=== PATIENT | female | born 1990 | race Native Hawaiian/Other Pacific Islander ===

== ENCOUNTER 2016-10-03 09:48 | Emergency (ER) | payer OTHER ==
[2016-10-03 10:37] LABS: BASO % 0.2 % (0.0-1.0); EOS # 0.2 K/mm3 (0.0-0.50); EOS % 2.4 % (0.0-3.0); LARGE UNSTAINED CELL # 0.1 K/mm3 (0.0-0.4); LARGE UNSTAINED CELL % 1.8 % (0.0-4.0); LYMPH # 2.3 K/mm3 (1.5-6.5); LYMPH % 30.4 % (24.0-44.0); MEAN CORPUSCULAR HEMOGLOBIN 25.8 pg (27.0-33.0); MEAN CORPUSCULAR HGB CONC 32.1 g/dl (32.0-36.5); MEAN CORPUSCULAR VOLUME 80.2 fl (80.0-96.0); MONO # 0.3 K/mm3 (0.0-0.8); MONO % 3.7 % (0.0-5.0); NEUTROPHILS # 4.6 K/mm3 (1.8-7.7); NEUTROPHILS % 61.4 % (36.0-66.0); PLATELET COUNT, AUTOMATED 262 k/mm3 (150-450); RED CELL DISTRIBUTION WIDTH 14.3 % (11.5-14.5); WHITE BLOOD COUNT 7.4 K/mm3 (4.0-10.0)
[2016-10-03 10:54] LABS: ANION GAP 9 MEQ/L (8-16); BLOOD UREA NITROGEN 10 MG/DL (7-18); CALCIUM LEVEL 8.9 MG/DL (8.5-10.1); CARBON DIOXIDE LEVEL 26 MEQ/L (21-32); CHLORIDE LEVEL 106 MEQ/L (98-107); CREATININE FOR GFR 0.65 MG/DL (0.55-1.02); GLOMERULAR FILTRATION RATE > 60.0 (>60); GLUCOSE, FASTING 100 MG/DL (70-105); HCG, SERUM QUANTITATIVE 204 MIU/ML; SODIUM LEVEL 141 MEQ/L (136-145)
--- NOTE | 2016-10-03 11:30 | REP ---
FIRST TRIMESTER ULTRASOUND: Real-time sonographic evaluation of the pelvis is performed utilizing transabdominal and endovaginal technique. Comparison is made with a priory study of 09/18/2016. The previously noted gestational sac and fetus are no longer visualized on the current exam compatible with spontaneous . The uterus measures 10.4 x 5.9 x 8.6 cm. The endometrial echo complex is diffusely heterogenous and thickened measuring 1.8 cm in diameter. This probably represents a combination of blood clot and/or retained products of conception. Ovaries are normal in size and echotexture, right ovary measuring 3.9 x 2.1 x 2.2 cm and the left ovary 2.9 x 1.9 x 1.7 cm. There is no adnexal mass or free fluid. IMPRESSION: Previously noted gestational sac and fetus is no longer seen compatible with spontaneous . Thickened heterogeneous endometrium likely represents a combination of blood clot and/or retained products of conception. Signed by Abdulkadir Castro MD 10/03/2016 05:20 P
--- NOTE | 2016-10-03 11:43 | EDDOCDS ---
Nurse's Notes [facility] Name: Anyi Devi Age: 26 yrs Sex: Female : 1990 Arrival Date: 10/03/2016 Time: 09:48 Bed I4 / M4 Private MD: SUZI Serrano Diagnosis: Spontaneous ;Urinary tract infection, site not specified Presentation: 10/03 09:52 Presenting complaint: Patient states: 6 weeks . started with heavy vaginal srm bleeding on the . sent here by behavioral health associate to be checked. Risk factors: The patient reports no loss of conciousness prior to arrival. This patient has not had a hysterectomy. This patient has not begun menopause. Adult Sepsis Screening: The patient does not have new or worsening altered mentation. Patient's respiratory rate is less than 22. Systolic blood pressure is greater than 100. Patient has a qSOFA score of 0- Negative Sepsis Screen. Suicide/Homicide risk assessment- the patient denies having any suicidal and/or homicidal ideations and does not present with any other emotional, behavioral or mental health complaints. Status: The patient is a dependent. Transition of care: patient was not received from another setting of care. 09:52 Acuity: JENNIFER Level 3 [facility] 09:52 Method Of Arrival: Walkin/Carried/Asstd [facility] Triage Assessment: 09:53 General: Appears in no apparent distress, Behavior is appropriate for age, cooperative. srm Pain: Denies pain. : Reports vaginal bleeding that is heavy flow. 09:54 Pt Declines HIV testing. 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 Vitamin Oral once daily - PMHx: none; - PSHx: none; - Social history: Smoking status: Patient states former smoker of tobacco. No barriers to communication noted, The patient speaks fluent Luxembourgish, Speaks appropriately for age. - Family history: Not pertinent. - : The pt / caregiver states he / she is not on anticoagulants. Home medication list is obtained from the patient. - Exposure Risk Screening:: None identified. Screenin:07 Screening information is obtained from the patient. Fall risk: No risks identified. kc3 Assistance ADL's: requires no assistance with activities of daily living. Abuse/DV Screen: The patient / caregiver reports he/she is: not in a situation that causes fear, pain or injury. Nutritional screening: No deficits noted. home support is adequate. 11:42 Advance Directives: Currently, there is no health care proxy. kc3 Assessment: 10:27 General: Appears in no apparent distress, comfortable, Behavior is appropriate for age, kc3 cooperative. Pain: Denies pain. Neurological: Level of Consciousness is awake, alert, obeys commands, Oriented to person, place, time. Respiratory: Airway is patent Respiratory effort is even, unlabored, Respiratory pattern is regular, symmetrical. : Reports vaginal bleeding that is moderate flow. Derm: Skin is pink, warm & dry. 11:11 General: Appears in no apparent distress, comfortable, Behavior is appropriate for age, kc3 cooperative. Pain: Denies pain. Neurological: Level of Consciousness is awake, alert, obeys commands, Oriented to person, place, time. Respiratory: Respiratory effort is even, unlabored, Respiratory pattern is regular, symmetrical. Derm: Skin is pink, warm & dry. Musculoskeletal: Circulation, motion, and sensation intact. 11:40 General: Appears in no apparent distress, comfortable, Behavior is appropriate for age, kc3 cooperative. Pain: Denies pain. Neurological: Level of Consciousness is awake, alert, obeys commands, Oriented to person, place, time. Respiratory: Respiratory effort is even, unlabored, Respiratory pattern is regular, symmetrical. : Reports vaginal bleeding that is moderate flow. Derm: Skin is pink, warm & dry. Vital Signs: 09:49 BP 154 / 65; Pulse 80; Resp 18 S; Temp 96.6(O); Pulse Ox 99% on R/A; Weight 116.12 kg dd6 (R); Height 5 ft. 4 in. (162.56 cm) (R); 11:41 BP 132 / 75; Pulse 89; Resp 18; Temp 97.6(O); Pulse Ox 97% on R/A; kc3 09:49 Body Mass Index 43.94 (116.12 kg, 162.56 cm) dd6 Vitals: 09:49 Log In Time: October 03, 2016 at 09:47. dd6 ED Course: 09:49 Patient visited by Cruz Daniels PCA. dd6 09:49 Maggie [facility] [place] Private Physician. dd6 09:49 Patient moved to Waiting dd6 09:50 Patient moved to Pre RCE dd6 09:53 Triage Initiated srm 09:54 Patient moved to Triage 2 srm 09:56 [facility] dt4 09:56 Eryn Newton MD is Attending Physician. dt4 09:56 Patient visited by Sonja Pacheco PA-C. dt4 09:56 Patient moved to I4 / M4 mlb1 10:06 Urinalysis Sent. kc3 10:06 Urine Culture Sent. kc3 10:07 The patient / caregiver is instructed regarding the plan of care and ED course. kc3 10:25 Type & Screen Sent. kc3 10:25 Hcg, Serum Quantitative Sent. kc3 10:26 Basic Metabolic Profile Sent. kc3 10:26 CBC with Diff Sent. kc3 10:27 Inserted saline lock: 20 gauge in left antecubital area and blood collected. The kc3 patient tolerated the procedure well. 10:28 Patient visited by Ashley Noble RN. kc3 10:35 Patient moved to Ultrasound br3 10:36 Wet Prep Sent. kc3 10:36 GC & Chlamydia Amplification Sent. kc3 10:37 Assist provider with pelvic exam: Set up pelvic tray. Specimens sent to lab. Performed kc3 by Sonja Pacheco PA-C Patient tolerated well. 10:38 Patient visited by Ashley Noble RN. kc3 10:59 Patient moved to I4 / M4 br3 11:11 Patient visited by Ashley Noble RN. kc3 11:30 Alicia Dhillon MD is Referral Physician. dt4 11:42 Discontinued IV lock intact, bleeding controlled, pressure dressing applied, No kc3 redness/swelling at site. Administered Medications: 10:25 Drug: NS 0.9% 1000 ml [sodium chloride 0.9 % intravenous solution] Route: IV; Rate: kc3 bolus; Site: left antecubital; 11:42 Follow up: IV Status: Completed infusion kc3 Point of Care Testing: Urine : 10:06 hCG Reading: Positive; Control Reading: Positive; kc3 Ranges: Order Results: Lab Order: Urinalysis; SPEC'M 10/03/16 10:01 Test: APPEARANCE, URINE; Value: CLOUDY; Range: CLEAR; Abnormal: Above high normal; Status: F Test: COLOR, URINE; Value: YELLOW; Range: YELLOW; Status: F Test: PH,URINE; Value: 5.0; Range: 5.0-9.0; Units: UNITS; Status: F Test: SPECIFIC GRAVITY URINE AUTO; Value: 1.020; Range: 1.002-1.035; Status: F Test: PROTEIN, URINE AUTO; Value: 2+; Range: NEGATIVE; Abnormal: Above high normal; Units: mg/dL; Status: F Test: GLUCOSE, URINE (UA) AUTO; Value: NEGATIVE; Range: NEGATIVE; Units: mg/dL; Status: F Test: KETONE, URINE AUTO; Value: NEGATIVE; Range: NEGATIVE; Units: mg/dL; Status: F Test: UROBILINOGEN, URINE AUTO; Value: 0.2; Range: 0.0-2.0; Units: mg/dL; Status: F Test: BILIRUBIN, URINE AUTO; Value: NEGATIVE; Range: NEGATIVE; Status: F Test: NITRITE, URINE AUTO; Value: NEGATIVE; Range: NEGATIVE; Status: F Test: LEUKOCYTE ESTERASE, URINE AUTO; Value: 1+; Range: NEGATIVE; Abnormal: Above high normal; Status: F Test: BLOOD, URINE BLOOD; Value: 3+; Range: NEGATIVE; Abnormal: Above high normal; Status: F Test: WBC, URINE AUTO; Value: 13; Range: 0-3; Abnormal: Above high normal; Units: /HPF; Status: F Test: RBC, URINE AUTO; Value: 42; Range: 0-3; Abnormal: Above high normal; Units: /HPF; Status: F Test: BACTERIA, URINE AUTO; Value: 1+; Range: NEGATIVE; Abnormal: Above high normal; Status: F Test: SQUAMOUS EPITHELIAL CELL UR AU; Value: 6; Range: 0-6; Units: /HPF; Status: F Test: MUCUS, URINE; Value: SMALL; Range: NEGATIVE; Status: F Test: HYALINE CAST, URINE AUTO; Value: 0; Range: 0-1; Units: /LPF; Status: F Lab Order: CBC with Diff; SPEC'M 10/03/16 10:15 Test: WHITE BLOOD COUNT; Value: 7.4; Range: 4.0-10.0; Units: K/mm3; Status: F Test: RED BLOOD COUNT; Value: 4.62; Range: 4.00-5.40; Units: M/mm3; Status: F Test: HEMOGLOBIN; Value: 11.9; Range: 12.0-16.0; Abnormal: Below low normal; Units: g/dl; Status: F Test: HEMATOCRIT; Value: 37.1; Range: 36.0-47.0; Units: %; Status: F Test: MEAN CORPUSCULAR VOLUME; Value: 80.2; Range: 80.0-96.0; Units: fl; Status: F Test: MEAN CORPUSCULAR HEMOGLOBIN; Value: 25.8; Range: 27.0-33.0; Abnormal: Below low normal; Units: pg; Status: F Test: MEAN CORPUSCULAR HGB CONC; Value: 32.1; Range: 32.0-36.5; Units: g/dl; Status: F Test: RED CELL DISTRIBUTION WIDTH; Value: 14.3; Range: 11.5-14.5; Units: %; Status: F Test: PLATELET COUNT, AUTOMATED; Value: 262; Range: 150-450; Units: k/mm3; Status: F Test: NEUTROPHILS %; Value: 61.4; Range: 36.0-66.0; Units: %; Status: F Test: LYMPH %; Value: 30.4; Range: 24.0-44.0; Units: %; Status: F Test: MONO %; Value: 3.7; Range: 0.0-5.0; Units: %; Status: F Test: EOS %; Value: 2.4; Range: 0.0-3.0; Units: %; Status: F Test: BASO %; Value: 0.2; Range: 0.0-1.0; Units: %; Status: F Test: LARGE UNSTAINED CELL %; Value: 1.8; Range: 0.0-4.0; Units: %; Status: F Test: NEUTROPHILS #; Value: 4.6; Range: 1.8-7.7; Units: K/mm3; Status: F Test: LYMPH #; Value: 2.3; Range: 1.5-6.5; Units: K/mm3; Status: F Test: MONO #; Value: 0.3; Range: 0.0-0.8; Units: K/mm3; Status: F Test: EOS #; Value: 0.2; Range: 0.0-0.50; Units: K/mm3; Status: F Test: BASO #; Value: 0.0; Range: 0.0-0.2; Units: K/mm3; Status: F Test: LARGE UNSTAINED CELL #; Value: 0.1; Range: 0.0-0.4; Units: K/mm3; Status: F Lab Order: Basic Metabolic Profile; SPEC'M 10/03/16 10:15 Test: GLUCOSE, FASTING; Value: 100; Range: 70-105; Units: MG/DL; Status: F Test: BLOOD UREA NITROGEN; Value: 10; Range: 7-18; Units: MG/DL; Status: F Test: CREATININE FOR GFR; Value: 0.65; Range: 0.55-1.02; Units: MG/DL; Status: F Test: GLOMERULAR FILTRATION RATE; Value: > 60.0; Range: >60; Status: F Test: SODIUM LEVEL; Value: 141; Range: 136-145; Units: MEQ/L; Status: F Test: POTASSIUM SERUM; Value: 4.0; Range: 3.5-5.1; Units: MEQ/L; Status: F Test: CHLORIDE LEVEL; Value: 106; Range: 98-107; Units: MEQ/L; Status: F Test: CARBON DIOXIDE LEVEL; Value: 26; Range: 21-32; Units: MEQ/L; Status: F Test: ANION GAP; Value: 9; Range: 8-16; Units: MEQ/L; Status: F Test: CALCIUM LEVEL; Value: 8.9; Range: 8.5-10.1; Units: MG/DL; Status: F Test Note: ; Units are mL/min/1.73 m2 Chronic Kidney Disease Staging per NKF: Stage I & II GFR >=60 Normal to Mildly Decreased Stage III GFR 30-59 Moderately Decreased Stage IV GFR 15-29 Severely Decreased Stage V GFR <15 Very Little GFR Left ESRD GFR <15 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 This assay has been designed to minimize interference from heterophilic antibodies. Elevated hCG levels have also been associated with trophoblastic disease and nontrophoblastic neoplasms. The possibility of having these diseases should be considered before a diagnosis of is made. This test is not intended for use as a surrogate marker for aiding in the diagnosis or monitoring the treatment of cancer patients. Siemens LIFT12 methodology. Lab Order: Type & Screen; SPEC'M 10/03/16 10:15 Test: BLOOD TYPE; Value: O POS; Status: F Test: AB SCREEN (INDIRECT TAISHA)GEL; Value: NEGATIVE; Status: F Lab Order: Wet Prep; SPEC'M 10/03/16 10:15 Test: WET PREP; Value: WET PREP RESULT; Status: F Test: WET PREP; Value: MANY EPITHELIAL CELLS PRESENT; Status: F Test: WET PREP; Value: MANY RBC; Status: F Test: WET PREP; Value: MODERATE WBC; Status: F Test: WET PREP; Value: MODERATE LONG RODS PRESENT; Status: F Test: WET PREP; Value: MODERATE SHORT RODS PRESENT; Status: F Outcome: 11:31 Discharge ordered by Provider. dt4 11:41 Discharge Assessment: Patient awake, alert and oriented x 3. No cognitive and/or kc3 functional deficits noted. Patient verbalized understanding of disposition instructions. patient administered narcotics - no. The following High Risk Discharge criteria are identified: None. Condition: stable. Discharge instructions given to patient, Instructed on discharge instructions, follow up and referral plans. medication usage, Demonstrated understanding of instructions, medications, Pt was receptive of discharge instructions/ teaching. Prescriptions given X 1. Ultrasound Study completed. Property :Personal belongings accompany Pt. 11:43 Patient left the ED. kc3 Signatures: Maryse Parisi, RN RN Nehemias Alexander RN RN mlb1 Cruz Daniels, VOCATIONAL NURSE VOCATIONAL NURSE dd6 Katerin Loco br3 Sonja Pacheco PA-C PAFlor dt4 Ashley Noble RN RN kc3 Corrections: (The following items were deleted from the chart) 10:37 10:27 : Reports vaginal bleeding that is kc3 kc3 11:40 10:27 : Reports vaginal bleeding that is kc3 kc3 MTDD
--- NOTE | 2016-10-03 11:43 | EDDOCDS ---
Physician Documentation [facility] Name: Anyi Devi Age: 26 yrs Sex: Female : 1990 Arrival Date: 10/03/2016 Time: 09:48 Bed I4 / M4 Private MD: Maggie [facility] [place] [place] Disposition: 10/03/16 11:31 Discharged to Home/Self Care. Impression: Spontaneous , Urinary tract infection, site not specified. - Condition is Stable. - Discharge Instructions: Miscarriage, Urinary Tract Infection. - Prescriptions for Macrobid 100 mg Oral Capsule - take 100 milligrams by ORAL route every 12 hours for 7 days; 14 capsule. - Medication Reconciliation, Local Pharmacy Hours form. - Follow up: Emergency Department; When: As needed; Reason: Worsening of conditions. Follow up: Alicia Dhillon MD; When: 2 - 3 days; Reason: Wound/Symptom Recheck, Recheck today's complaints, Continuance of care. - Problem is new. - Symptoms are unchanged. Historical: - Allergies: no known allergies; - Home Meds: 1. Vitamin Oral once daily - PMHx: none; - PSHx: none; - Social history: Smoking status: Patient states former smoker of tobacco. No barriers to communication noted, The patient speaks fluent Tuvaluan, Speaks appropriately for age. - Family history: Not pertinent. - : The pt / caregiver states he / she is not on anticoagulants. Home medication list is obtained from the patient. - Exposure Risk Screening:: None identified. 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 4 in. (162.56 cm) (R); 11:41 BP 132 / 75; Pulse 89; Resp 18; Temp 97.6(O); Pulse Ox 97% on R/A; kc3 09:49 Body Mass Index 43.94 (116.12 kg, 162.56 cm) dd6 MDM: 09:57 UCG by Nursing ordered. dt4 09:58 Urinalysis Ordered. EDMS 09:58 Urine Culture Ordered. EDMS 10:07 IV Saline Lock ordered. dt4 10:07 NS 0.9% 1000 ml IV at bolus once ordered. dt4 10:07 Set up pelvic ordered. dt4 10:07 Undress patient appropriately for examination ordered. dt4 10:08 CBC with Diff Ordered. EDMS 10:08 Basic Metabolic Profile Ordered. EDMS 10:08 Hcg, Serum Quantitative Ordered. EDMS 10:08 Type & Screen Ordered. EDMS 10:08 GC & Chlamydia Amplification Ordered. EDMS 10:08 Wet Prep Ordered. EDMS 10:08 US 1st trimester Ordered. EDMS 10:32 Financial registration complete. lg 10:56 TRANSVAGINAL US Ordered. EDMS Point of Care Testing: Urine : 10:06 hCG Reading: Positive; Control Reading: Positive; kc3 Ranges: Administered Medications: 10:25 Drug: NS 0.9% 1000 ml [sodium chloride 0.9 % intravenous solution] Route: IV; Rate: kc3 bolus; Site: left antecubital; 11:42 Follow up: IV Status: Completed infusion kc3 Signatures: Dispatcher [employer] EDMaryse Ledezma, RN RN srm Riley Clifford, Reg Reg lg Sonja Pacheco PA-C PAFlor dt4 Ashley Noble,MESERET CARL kc3 MTDD
--- NOTE | 2016-10-05 12:44 | EDDOCDS ---
Nurse's Notes [facility] Name: Anyi Devi Age: 26 yrs Sex: Female : 1990 Arrival Date: 10/03/2016 Time: 09:48 Bed I4 / M4 Private MD: SUZI Serrano Diagnosis: Spontaneous ;Urinary tract infection, site not specified Presentation: 10/03 09:52 Presenting complaint: Patient states: 6 weeks . started with heavy vaginal srm bleeding on the . sent here by estate tax examiner to be checked. Risk factors: The patient reports no loss of conciousness prior to arrival. This patient has not had a hysterectomy. This patient has not begun menopause. Adult Sepsis Screening: The patient does not have new or worsening altered mentation. Patient's respiratory rate is less than 22. Systolic blood pressure is greater than 100. Patient has a qSOFA score of 0- Negative Sepsis Screen. Suicide/Homicide risk assessment- the patient denies having any suicidal and/or homicidal ideations and does not present with any other emotional, behavioral or mental health complaints. Status: The patient is a dependent. Transition of care: patient was not received from another setting of care. 09:52 Acuity: JENNIFER Level 3 [facility] 09:52 Method Of Arrival: Walkin/Carried/Asstd [facility] Triage Assessment: 09:53 General: Appears in no apparent distress, Behavior is appropriate for age, cooperative. srm Pain: Denies pain. : Reports vaginal bleeding that is heavy flow. 09:54 Pt Declines HIV testing. 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 Vitamin Oral once daily - PMHx: none; - PSHx: none; - Social history: Smoking status: Patient states former smoker of tobacco. No barriers to communication noted, The patient speaks fluent Occitan, Speaks appropriately for age. - Family history: Not pertinent. - : The pt / caregiver states he / she is not on anticoagulants. Home medication list is obtained from the patient. - Exposure Risk Screening:: None identified. Screenin:07 Screening information is obtained from the patient. Fall risk: No risks identified. kc3 Assistance ADL's: requires no assistance with activities of daily living. Abuse/DV Screen: The patient / caregiver reports he/she is: not in a situation that causes fear, pain or injury. Nutritional screening: No deficits noted. home support is adequate. 11:42 Advance Directives: Currently, there is no health care proxy. kc3 Assessment: 10:27 General: Appears in no apparent distress, comfortable, Behavior is appropriate for age, kc3 cooperative. Pain: Denies pain. Neurological: Level of Consciousness is awake, alert, obeys commands, Oriented to person, place, time. Respiratory: Airway is patent Respiratory effort is even, unlabored, Respiratory pattern is regular, symmetrical. : Reports vaginal bleeding that is moderate flow. Derm: Skin is pink, warm & dry. 11:11 General: Appears in no apparent distress, comfortable, Behavior is appropriate for age, kc3 cooperative. Pain: Denies pain. Neurological: Level of Consciousness is awake, alert, obeys commands, Oriented to person, place, time. Respiratory: Respiratory effort is even, unlabored, Respiratory pattern is regular, symmetrical. Derm: Skin is pink, warm & dry. Musculoskeletal: Circulation, motion, and sensation intact. 11:40 General: Appears in no apparent distress, comfortable, Behavior is appropriate for age, kc3 cooperative. Pain: Denies pain. Neurological: Level of Consciousness is awake, alert, obeys commands, Oriented to person, place, time. Respiratory: Respiratory effort is even, unlabored, Respiratory pattern is regular, symmetrical. : Reports vaginal bleeding that is moderate flow. Derm: Skin is pink, warm & dry. Vital Signs: 09:49 BP 154 / 65; Pulse 80; Resp 18 S; Temp 96.6(O); Pulse Ox 99% on R/A; Weight 116.12 kg dd6 (R); Height 5 ft. 4 in. (162.56 cm) (R); 11:41 BP 132 / 75; Pulse 89; Resp 18; Temp 97.6(O); Pulse Ox 97% on R/A; kc3 09:49 Body Mass Index 43.94 (116.12 kg, 162.56 cm) dd6 Vitals: 09:49 Log In Time: October 03, 2016 at 09:47. dd6 ED Course: 09:49 Patient visited by Cruz Daniels PCA. dd6 09:49 Maggie [facility] is Private Physician. dd6 09:49 Patient moved to Waiting dd6 09:50 Patient moved to Pre RCE dd6 09:53 Triage Initiated srm 09:54 Patient moved to Triage 2 srm 09:56 Sonja Pacheco [facility]-C [facility]. dt4 09:56 Eryn Newton MD is Attending Physician. dt4 09:56 Patient visited by Sonja Pacheco PA-C. dt4 09:56 Patient moved to I4 / M4 mlb1 10:06 Urinalysis Sent. kc3 10:06 Urine Culture Sent. kc3 10:07 The patient / caregiver is instructed regarding the plan of care and ED course. kc3 10:25 Type & Screen Sent. kc3 10:25 Hcg, Serum Quantitative Sent. kc3 10:26 Basic Metabolic Profile Sent. kc3 10:26 CBC with Diff Sent. kc3 10:27 Inserted saline lock: 20 gauge in left antecubital area and blood collected. The kc3 patient tolerated the procedure well. 10:28 Patient visited by Ashley Noble RN. kc3 10:35 Patient moved to Ultrasound br3 10:36 Wet Prep Sent. kc3 10:36 GC & Chlamydia Amplification Sent. kc3 10:37 Assist provider with pelvic exam: Set up pelvic tray. Specimens sent to lab. Performed kc3 by Sonja Pacheco PA-C Patient tolerated well. 10:38 Patient visited by Ashley Noble RN. kc3 10:59 Patient moved to I4 / M4 br3 11:11 Patient visited by Ashley Noble RN. kc3 11:30 Alicia Dhillon MD is Referral Physician. dt4 11:42 Discontinued IV lock intact, bleeding controlled, pressure dressing applied, No kc3 redness/swelling at site. 11:51 [facility] Payment Agreement was scanned into [employer] and attached to record. lg 11:53 US 1st trimester Returned. EDMS 14:56 T-Sheet-- Draft Copy was scanned into [employer] and attached to record. gb 14:56 Radiology Report was scanned into [employer] and attached to record. gb Administered Medications: 10:25 Drug: NS 0.9% 1000 ml [sodium chloride 0.9 % intravenous solution] Route: IV; Rate: kc3 bolus; Site: left antecubital; 11:42 Follow up: IV Status: Completed infusion kc3 Point of Care Testing: Urine : 10:06 hCG Reading: Positive; Control Reading: Positive; kc3 Ranges: Order Results: Lab Order: Urinalysis; SPEC'M 10/03/16 10:01 Test: APPEARANCE, URINE; Value: CLOUDY; Range: CLEAR; Abnormal: Above high normal; Status: F Test: COLOR, URINE; Value: YELLOW; Range: YELLOW; Status: F Test: PH,URINE; Value: 5.0; Range: 5.0-9.0; Units: UNITS; Status: F Test: SPECIFIC GRAVITY URINE AUTO; Value: 1.020; Range: 1.002-1.035; Status: F Test: PROTEIN, URINE AUTO; Value: 2+; Range: NEGATIVE; Abnormal: Above high normal; Units: mg/dL; Status: F Test: GLUCOSE, URINE (UA) AUTO; Value: NEGATIVE; Range: NEGATIVE; Units: mg/dL; Status: F Test: KETONE, URINE AUTO; Value: NEGATIVE; Range: NEGATIVE; Units: mg/dL; Status: F Test: UROBILINOGEN, URINE AUTO; Value: 0.2; Range: 0.0-2.0; Units: mg/dL; Status: F Test: BILIRUBIN, URINE AUTO; Value: NEGATIVE; Range: NEGATIVE; Status: F Test: NITRITE, URINE AUTO; Value: NEGATIVE; Range: NEGATIVE; Status: F Test: LEUKOCYTE ESTERASE, URINE AUTO; Value: 1+; Range: NEGATIVE; Abnormal: Above high normal; Status: F Test: BLOOD, URINE BLOOD; Value: 3+; Range: NEGATIVE; Abnormal: Above high normal; Status: F Test: WBC, URINE AUTO; Value: 13; Range: 0-3; Abnormal: Above high normal; Units: /HPF; Status: F Test: RBC, URINE AUTO; Value: 42; Range: 0-3; Abnormal: Above high normal; Units: /HPF; Status: F Test: BACTERIA, URINE AUTO; Value: 1+; Range: NEGATIVE; Abnormal: Above high normal; Status: F Test: SQUAMOUS EPITHELIAL CELL UR AU; Value: 6; Range: 0-6; Units: /HPF; Status: F Test: MUCUS, URINE; Value: SMALL; Range: NEGATIVE; Status: F Test: HYALINE CAST, URINE AUTO; Value: 0; Range: 0-1; Units: /LPF; Status: F Lab Order: Urine Culture; SPEC'M 10/03/16 10:01 Test: URINE CULTURE; Value: ORGANISM 1: LACTOBACILLUS SPECIES; Status: F Test: URINE CULTURE; Value: LACTOBACILLUS SPECIES; Status: F Test: URINE CULTURE; Value: COLONY COUNT CFU/ml >100,000; Status: F Test: URINE CULTURE; Value: Lactobacillus sp line 1 Most Lactobacillus species recovered from clinical; Status: F Test: URINE CULTURE; Value: Lactobacillus sp line 2 specimens are rarely pathogenic. Penicillin or; Status: F Test: URINE CULTURE; Value: Lactobacillus sp line 3 ampicillin with or without gentamicin is recommended; Status: F Test: URINE CULTURE; Value: Lactobacillus sp line 4 for treatment. Clindamycin and erythromycin are; Status: F Test: URINE CULTURE; Value: Lactobacillus sp line 5 alternative treatments. Vancomycin resistance has been; Status: F Test: URINE CULTURE; Value: Lactobacillus sp line 6 reported.; Status: F Lab Order: CBC with Diff; SPEC'M 10/03/16 10:15 Test: WHITE BLOOD COUNT; Value: 7.4; Range: 4.0-10.0; Units: K/mm3; Status: F Test: RED BLOOD COUNT; Value: 4.62; Range: 4.00-5.40; Units: M/mm3; Status: F Test: HEMOGLOBIN; Value: 11.9; Range: 12.0-16.0; Abnormal: Below low normal; Units: g/dl; Status: F Test: HEMATOCRIT; Value: 37.1; Range: 36.0-47.0; Units: %; Status: F Test: MEAN CORPUSCULAR VOLUME; Value: 80.2; Range: 80.0-96.0; Units: fl; Status: F Test: MEAN CORPUSCULAR HEMOGLOBIN; Value: 25.8; Range: 27.0-33.0; Abnormal: Below low normal; Units: pg; Status: F Test: MEAN CORPUSCULAR HGB CONC; Value: 32.1; Range: 32.0-36.5; Units: g/dl; Status: F Test: RED CELL DISTRIBUTION WIDTH; Value: 14.3; Range: 11.5-14.5; Units: %; Status: F Test: PLATELET COUNT, AUTOMATED; Value: 262; Range: 150-450; Units: k/mm3; Status: F Test: NEUTROPHILS %; Value: 61.4; Range: 36.0-66.0; Units: %; Status: F Test: LYMPH %; Value: 30.4; Range: 24.0-44.0; Units: %; Status: F Test: MONO %; Value: 3.7; Range: 0.0-5.0; Units: %; Status: F Test: EOS %; Value: 2.4; Range: 0.0-3.0; Units: %; Status: F Test: BASO %; Value: 0.2; Range: 0.0-1.0; Units: %; Status: F Test: LARGE UNSTAINED CELL %; Value: 1.8; Range: 0.0-4.0; Units: %; Status: F Test: NEUTROPHILS #; Value: 4.6; Range: 1.8-7.7; Units: K/mm3; Status: F Test: LYMPH #; Value: 2.3; Range: 1.5-6.5; Units: K/mm3; Status: F Test: MONO #; Value: 0.3; Range: 0.0-0.8; Units: K/mm3; Status: F Test: EOS #; Value: 0.2; Range: 0.0-0.50; Units: K/mm3; Status: F Test: BASO #; Value: 0.0; Range: 0.0-0.2; Units: K/mm3; Status: F Test: LARGE UNSTAINED CELL #; Value: 0.1; Range: 0.0-0.4; Units: K/mm3; Status: F Lab Order: Basic Metabolic Profile; [facility]' 10/03/16 10:15 Test: GLUCOSE, FASTING; Value: 100; Range: 70-105; Units: MG/DL; Status: F Test: BLOOD UREA NITROGEN; Value: 10; Range: 7-18; Units: MG/DL; Status: F Test: CREATININE FOR GFR; Value: 0.65; Range: 0.55-1.02; Units: MG/DL; Status: F Test: GLOMERULAR FILTRATION RATE; Value: > 60.0; Range: >60; Status: F Test: SODIUM LEVEL; Value: 141; Range: 136-145; Units: MEQ/L; Status: F Test: POTASSIUM SERUM; Value: 4.0; Range: 3.5-5.1; Units: MEQ/L; Status: F Test: CHLORIDE LEVEL; Value: 106; Range: 98-107; Units: MEQ/L; Status: F Test: CARBON DIOXIDE LEVEL; Value: 26; Range: 21-32; Units: MEQ/L; Status: F Test: ANION GAP; Value: 9; Range: 8-16; Units: MEQ/L; Status: F Test: CALCIUM LEVEL; Value: 8.9; Range: 8.5-10.1; Units: MG/DL; Status: F Test Note: ; Units are mL/min/1.73 m2 Chronic Kidney Disease Staging per NKF: Stage I & II GFR >=60 Normal to Mildly Decreased Stage III GFR 30-59 Moderately Decreased Stage IV GFR 15-29 Severely Decreased Stage V GFR <15 Very Little GFR Left ESRD GFR <15 on DIRECTOR OF STUDENT AID Lab Order: Hcg, Serum Quantitative; SPEC'M 10/03/16 10:15 Test: HCG, SERUM QUANTITATIVE; Value: 204; Units: MIU/ML; Status: F Test Note: ; GESTATIONAL AGE APPROXIMATE HCG RANGE (MIU/ML) 0.2-1 WEEK 5-50 1-2 WEEKS 50-500 2-3 WEEKS 100-5,000 3-4 WEEKS 500-10,000 4-5 WEEKS 1,000-50,000 5-6 WEEKS 10,000-100,000 6-8 WEEKS 15,000-200,000 2-3 MONTHS 10,000-100,000 NON FEMALES LESS THAN 3.0 Patient samples may contain human heterophilic antibodies that could react with immunoassays to give falsely elevated or depressed results. This assay has been designed to minimize interference from heterophilic antibodies. Elevated hCG levels have also been associated with trophoblastic disease and nontrophoblastic neoplasms. The possibility of having these diseases should be considered before a diagnosis of is made. This test is not intended for use as a surrogate marker for aiding in the diagnosis or monitoring the treatment of cancer patients. [facility] methodology. Lab Order: Type & Screen; SPEC'M 10/03/16 10:15 Test: BLOOD TYPE; Value: O POS; Status: F Test: AB SCREEN (INDIRECT TAISHA)GEL; Value: NEGATIVE; Status: F Lab Order: GC & Chlamydia Amplification; SPEC'M 10/03/16 10:15 Test: CHLAMYDIA DNA AMPLIFICATION; Value: NEGATIVE; Range: NEGATIVE; Status: F Test: GC DNA AMPLIFICATION; Value: NEGATIVE; Range: NEGATIVE; Status: F Lab Order: Wet Prep; SPEC'M 10/03/16 10:15 Test: WET PREP; Value: WET PREP RESULT; Status: F Test: WET PREP; Value: MANY EPITHELIAL CELLS PRESENT; Status: F Test: WET PREP; Value: MANY RBC; Status: F Test: WET PREP; Value: MODERATE WBC; Status: F Test: WET PREP; Value: MODERATE LONG RODS PRESENT; Status: F Test: WET PREP; Value: MODERATE SHORT RODS PRESENT; Status: F Radiology Order: US 1st trimester Test: US 1st trimester REASON FOR EXAMINATION: pos preg, vag bleed; FIRST TRIMESTER ULTRASOUND:; ; Real-time sonographic evaluation of the pelvis is performed utilizing; transabdominal and endovaginal technique.; ; Comparison is made with a priory study of 09/18/2016.; ; The previously noted gestational sac and fetus are no longer visualized on the; current exam compatible with spontaneous . The uterus measures 10.4 x 5.9; x 8.6 cm. The endometrial echo complex is diffusely heterogenous and thickened; measuring 1.8 cm in diameter. This probably represents a combination of blood; clot and/or retained products of conception.; ; Ovaries are normal in size and echotexture, right ovary measuring 3.9 x 2.1 x 2.2; cm and the left ovary 2.9 x 1.9 x 1.7 cm. There is no adnexal mass or free fluid.; ; ; IMPRESSION:; ; Previously noted gestational sac and fetus is no longer seen compatible with; spontaneous . Thickened heterogeneous endometrium likely represents a; combination of blood clot and/or retained products of conception.; ; ; Signed by; Abdulkadir Castro MD 10/03/2016 05:20 P; Outcome: 11:31 Discharge ordered by Provider. dt4 11:41 Discharge Assessment: Patient awake, alert and oriented x 3. No cognitive and/or kc3 functional deficits noted. Patient verbalized understanding of disposition instructions. patient administered narcotics - no. The following High Risk Discharge criteria are identified: None. Condition: stable. Discharge instructions given to patient, Instructed on discharge instructions, follow up and referral plans. medication usage, Demonstrated understanding of instructions, medications, Pt was receptive of discharge instructions/ teaching. Prescriptions given X 1. Ultrasound Study completed. Property :Personal belongings accompany Pt. 11:43 Patient left the ED. kc3 Signatures: Dispatcher [employer] EDMS Maryse Parisi, RN RN [facility] Maranda Thomason, Reg Reg gb Riley Clifford, Reg Reg lg Nehemias Rueda RN RN mlb1 Cruz Daniels, INFORMATION SECURITY ASSOCIATE INFORMATION SECURITY ASSOCIATE dd6 Katerin Loco br3 Sonja Pacheco, PA-C PA-C dt4 Ashley Noble,RN RN kc3 Corrections: (The following items were deleted from the chart) 10:37 10:27 : Reports vaginal bleeding that is kc3 kc3 11:40 10:27 : Reports vaginal bleeding that is kc3 kc3 Chart Complete [facility]
--- NOTE | 2016-10-05 12:44 | EDDOCDS ---
Physician Documentation [facility] Name: Anyi Devi Age: 26 yrs Sex: Female : 1990 Arrival Date: 10/03/2016 Time: 09:48 Bed I4 / M4 Private MD: [place] [facility] [place]: 10/03/16 11:31 Discharged to Home/Self Care. Impression: Spontaneous , Urinary tract infection, site not specified. - Condition is Stable. - Discharge Instructions: Miscarriage, Urinary Tract Infection. - Prescriptions for Macrobid 100 mg Oral Capsule - take 100 milligrams by ORAL route every 12 hours for 7 days; 14 capsule. - Medication Reconciliation, Local Pharmacy Hours form. - Follow up: Emergency Department; When: As needed; Reason: Worsening of conditions. Follow up: Alicia Dhillon MD; When: 2 - 3 days; Reason: Wound/Symptom Recheck, Recheck today's complaints, Continuance of care. - Problem is new. - Symptoms are unchanged. Historical: - Allergies: no known allergies; - Home Meds: 1. Vitamin Oral once daily - PMHx: none; - PSHx: none; - Social history: Smoking status: Patient states former smoker of tobacco. No barriers to communication noted, The patient speaks fluent German, Speaks appropriately for age. - Family history: Not pertinent. - : The pt / caregiver states he / she is not on anticoagulants. Home medication list is obtained from the patient. - Exposure Risk Screening:: None identified. 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 4 in. (162.56 cm) (R); 11:41 BP 132 / 75; Pulse 89; Resp 18; Temp 97.6(O); Pulse Ox 97% on R/A; kc3 09:49 Body Mass Index 43.94 (116.12 kg, 162.56 cm) dd6 MDM: 09:57 UCG by Nursing ordered. dt4 09:58 Urinalysis Ordered. EDMS 09:58 Urine Culture Ordered. EDMS 10:07 IV Saline Lock ordered. dt4 10:07 NS 0.9% 1000 ml IV at bolus once ordered. dt4 10:07 Set up pelvic ordered. dt4 10:07 Undress patient appropriately for examination ordered. dt4 10:08 CBC with Diff Ordered. EDMS 10:08 Basic Metabolic Profile Ordered. EDMS 10:08 Hcg, Serum Quantitative Ordered. EDMS 10:08 Type & Screen Ordered. EDMS 10:08 GC & Chlamydia Amplification Ordered. EDMS 10:08 Wet Prep Ordered. EDMS 10:08 US 1st trimester Ordered. EDMS 10:32 Financial registration complete. lg 10:56 TRANSVAGINAL US Ordered. EDMS 11:51 [facility] Payment Agreement was scanned into [employer] and attached to record. lg 14:56 T-Sheet-- Draft Copy was scanned into [employer] and attached to record. gb 14:56 Radiology Report was scanned into [employer] and attached to record. Point of Care Testing: Urine : 10:06 hCG Reading: Positive; Control Reading: Positive; kc3 Ranges: Administered Medications: 10:25 Drug: NS 0.9% 1000 ml [sodium chloride 0.9 % intravenous solution] Route: IV; Rate: kc3 bolus; Site: left antecubital; 11:42 Follow up: IV Status: Completed infusion kc3 Signatures: Dispatcher [employer] Maryse Manriquez, MESERET CARL [facility] Maranda Thomason, Reg Reg gb Riley Clifford, Reg Reg lg Sonja Pacheco, DARCI BEJARANO dt4 Ashley NobleRN RN kc3 The chart was reviewed and I authenticate all verbal orders and agree with the evaluation and treatment provided.Attachments: 11:51 [facility] Payment Agreement lg 14:56 T-Sheet-- Draft Copy gb Chart Complete MTDD
--- NOTE | 2016-10-05 12:44 | EDDOCDS ---
Physician Documentation [facility] Name: Anyi Devi Age: 26 yrs Sex: Female : 1990 Arrival Date: 10/03/2016 Time: 09:48 Bed I4 / M4 Private MD: Maggie [facility] Disposition: 10/03/16 11:31 Discharged to Home/Self Care. Impression: Spontaneous , Urinary tract infection, site not specified. - Condition is Stable. - Discharge Instructions: Miscarriage, Urinary Tract Infection. - Prescriptions for Macrobid 100 mg Oral Capsule - take 100 milligrams by ORAL route every 12 hours for 7 days; 14 capsule. - Medication Reconciliation, Local Pharmacy Hours form. - Follow up: Emergency Department; When: As needed; Reason: Worsening of conditions. Follow up: Alicia Dhillon MD; When: 2 - 3 days; Reason: Wound/Symptom Recheck, Recheck today's complaints, Continuance of care. - Problem is new. - Symptoms are unchanged. Historical: - Allergies: no known allergies; - Home Meds: 1. Vitamin Oral once daily - PMHx: none; - PSHx: none; - Social history: Smoking status: Patient states former smoker of tobacco. No barriers to communication noted, The patient speaks fluent Chadian, Speaks appropriately for age. - Family history: Not pertinent. - : The pt / caregiver states he / she is not on anticoagulants. Home medication list is obtained from the patient. - Exposure Risk Screening:: None identified. 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 4 in. (162.56 cm) (R); 11:41 BP 132 / 75; Pulse 89; Resp 18; Temp 97.6(O); Pulse Ox 97% on R/A; kc3 09:49 Body Mass Index 43.94 (116.12 kg, 162.56 cm) dd6 MDM: 09:57 UCG by Nursing ordered. dt4 09:58 Urinalysis Ordered. EDMS 09:58 Urine Culture Ordered. EDMS 10:07 IV Saline Lock ordered. dt4 10:07 NS 0.9% 1000 ml IV at bolus once ordered. dt4 10:07 Set up pelvic ordered. dt4 10:07 Undress patient appropriately for examination ordered. dt4 10:08 CBC with Diff Ordered. EDMS 10:08 Basic Metabolic Profile Ordered. EDMS 10:08 Hcg, Serum Quantitative Ordered. EDMS 10:08 Type & Screen Ordered. EDMS 10:08 GC & Chlamydia Amplification Ordered. EDMS 10:08 Wet Prep Ordered. EDMS 10:08 US 1st trimester Ordered. EDMS 10:32 Financial registration complete. lg 10:56 TRANSVAGINAL US Ordered. EDMS 11:51 [facility] [place] Payment Agreement was scanned into [employer] and attached to record. lg 14:56 T-Sheet-- Draft Copy was scanned into [employer] and attached to record. gb 14:56 Radiology Report was scanned into [employer] and attached to record. Point of Care Testing: Urine : 10:06 hCG Reading: Positive; Control Reading: Positive; kc3 Ranges: Administered Medications: 10:25 Drug: NS 0.9% 1000 ml [sodium chloride 0.9 % intravenous solution] Route: IV; Rate: kc3 bolus; Site: left antecubital; 11:42 Follow up: IV Status: Completed infusion kc3 Signatures: Dispatcher [employer] Maryse Manriquez, MESERET CARL [facility] Maranda Thomason, Reg Reg gb Riley Clifford, Reg Reg lg Sonja Pacheco, DARCI BEJARANO dt4 Ashley NobleRN RN kc3 The chart was reviewed and I authenticate all verbal orders and agree with the evaluation and treatment provided.Attachments: 11:51 [facility] Payment Agreement lg 14:56 T-Sheet-- Draft Copy gb Chart Complete MTDD
--- NOTE | 2016-10-06 17:12 | EDDOCDS ---
Physician Documentation [facility] Name: Anyi Devi Age: 26 yrs Sex: Female : 1990 Arrival Date: 10/03/2016 Time: 09:48 Bed I4 / M4 Private MD: Maggie [facility] [place] Disposition: 10/03/16 11:31 Discharged to Home/Self Care. Impression: Spontaneous , Urinary tract infection, site not specified. - Condition is Stable. - Discharge Instructions: Miscarriage, Urinary Tract Infection. - Prescriptions for Macrobid 100 mg Oral Capsule - take 100 milligrams by ORAL route every 12 hours for 7 days; 14 capsule. - Medication Reconciliation, Local Pharmacy Hours form. - Follow up: Emergency Department; When: As needed; Reason: Worsening of conditions. Follow up: Alicia Dhillon MD; When: 2 - 3 days; Reason: Wound/Symptom Recheck, Recheck today's complaints, Continuance of care. - Problem is new. - Symptoms are unchanged. Historical: - Allergies: no known allergies; - Home Meds: 1. Vitamin Oral once daily - PMHx: none; - PSHx: none; - Social history: Smoking status: Patient states former smoker of tobacco. No barriers to communication noted, The patient speaks fluent French, Speaks appropriately for age. - Family history: Not pertinent. - : The pt / caregiver states he / she is not on anticoagulants. Home medication list is obtained from the patient. - Exposure Risk Screening:: None identified. 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 4 in. (162.56 cm) (R); 11:41 BP 132 / 75; Pulse 89; Resp 18; Temp 97.6(O); Pulse Ox 97% on R/A; kc3 09:49 Body Mass Index 43.94 (116.12 kg, 162.56 cm) dd6 MDM: 09:57 UCG by Nursing ordered. dt4 09:58 Urinalysis Ordered. EDMS 09:58 Urine Culture Ordered. EDMS 10:07 IV Saline Lock ordered. dt4 10:07 NS 0.9% 1000 ml IV at bolus once ordered. dt4 10:07 Set up pelvic ordered. dt4 10:07 Undress patient appropriately for examination ordered. dt4 10:08 CBC with Diff Ordered. EDMS 10:08 Basic Metabolic Profile Ordered. EDMS 10:08 Hcg, Serum Quantitative Ordered. EDMS 10:08 Type & Screen Ordered. EDMS 10:08 GC & Chlamydia Amplification Ordered. EDMS 10:08 Wet Prep Ordered. EDMS 10:08 US 1st trimester Ordered. EDMS 10:32 Financial registration complete. lg 10:56 TRANSVAGINAL US Ordered. EDMS 11:51 [facility] Payment Agreement was scanned into [employer] and attached to record. lg 14:56 T-Sheet-- Draft Copy was scanned into [employer] and attached to record. gb 14:56 Radiology Report was scanned into [employer] and attached to record. Point of Care Testing: Urine : 10:06 hCG Reading: Positive; Control Reading: Positive; kc3 Ranges: Administered Medications: 10:25 Drug: NS 0.9% 1000 ml [sodium chloride 0.9 % intravenous solution] Route: IV; Rate: kc3 bolus; Site: left antecubital; 11:42 Follow up: IV Status: Completed infusion kc3 Signatures: Dispatcher [employer] Maryse Manriquez, MESERET CARL [facility] Maranda Thomason, Reg Reg gb Riley Clifford, Reg Reg lg Sonja Pacheco, DARCI BEJARANO dt4 Ashley NobleRN RN kc3 The chart was reviewed and I authenticate all verbal orders and agree with the evaluation and treatment provided.Attachments: 11:51 [facility] Payment Agreement lg 14:56 T-Sheet-- Draft Copy gb MTDD
--- NOTE | 2016-10-06 17:12 | EDDOCDS ---
Physician Documentation [facility] Name: Anyi Devi Age: 26 yrs Sex: Female : 1990 Arrival Date: 10/03/2016 Time: 09:48 Bed I4 / M4 Private MD: Maggie [facility] [place] Disposition: 10/03/16 11:31 Discharged to Home/Self Care. Impression: Spontaneous , Urinary tract infection, site not specified. - Condition is Stable. - Discharge Instructions: Miscarriage, Urinary Tract Infection. - Prescriptions for Macrobid 100 mg Oral Capsule - take 100 milligrams by ORAL route every 12 hours for 7 days; 14 capsule. - Medication Reconciliation, Local Pharmacy Hours form. - Follow up: Emergency Department; When: As needed; Reason: Worsening of conditions. Follow up: Alicia Dhillon MD; When: 2 - 3 days; Reason: Wound/Symptom Recheck, Recheck today's complaints, Continuance of care. - Problem is new. - Symptoms are unchanged. Historical: - Allergies: no known allergies; - Home Meds: 1. Vitamin Oral once daily - PMHx: none; - PSHx: none; - Social history: Smoking status: Patient states former smoker of tobacco. No barriers to communication noted, The patient speaks fluent Kenyan, Speaks appropriately for age. - Family history: Not pertinent. - : The pt / caregiver states he / she is not on anticoagulants. Home medication list is obtained from the patient. - Exposure Risk Screening:: None identified. 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 4 in. (162.56 cm) (R); 11:41 BP 132 / 75; Pulse 89; Resp 18; Temp 97.6(O); Pulse Ox 97% on R/A; kc3 09:49 Body Mass Index 43.94 (116.12 kg, 162.56 cm) dd6 MDM: 09:57 UCG by Nursing ordered. dt4 09:58 Urinalysis Ordered. EDMS 09:58 Urine Culture Ordered. EDMS 10:07 IV Saline Lock ordered. dt4 10:07 NS 0.9% 1000 ml IV at bolus once ordered. dt4 10:07 Set up pelvic ordered. dt4 10:07 Undress patient appropriately for examination ordered. dt4 10:08 CBC with Diff Ordered. EDMS 10:08 Basic Metabolic Profile Ordered. EDMS 10:08 Hcg, Serum Quantitative Ordered. EDMS 10:08 Type & Screen Ordered. EDMS 10:08 GC & Chlamydia Amplification Ordered. EDMS 10:08 Wet Prep Ordered. EDMS 10:08 US 1st trimester Ordered. EDMS 10:32 Financial registration complete. lg 10:56 TRANSVAGINAL US Ordered. EDMS 11:51 [facility] Payment Agreement was scanned into [employer] and attached to record. lg 14:56 T-Sheet-- Draft Copy was scanned into [employer] and attached to record. gb 14:56 Radiology Report was scanned into [employer] and attached to record. Point of Care Testing: Urine : 10:06 hCG Reading: Positive; Control Reading: Positive; kc3 Ranges: Administered Medications: 10:25 Drug: NS 0.9% 1000 ml [sodium chloride 0.9 % intravenous solution] Route: IV; Rate: kc3 bolus; Site: left antecubital; 11:42 Follow up: IV Status: Completed infusion kc3 Signatures: Dispatcher [employer] Maryse Manriquez, MESERET CARL [facility] Maranda Thomason, Reg Reg gb Riley Clifford, Reg Reg lg Sonja Pacheco, DARCI BEJARANO dt4 Ashley NobleRN RN kc3 The chart was reviewed and I authenticate all verbal orders and agree with the evaluation and treatment provided.Attachments: 11:51 [facility] Payment Agreement lg 14:56 T-Sheet-- Draft Copy gb MTDD
--- NOTE | 2016-10-06 17:13 | EDDOCDS ---
Physician Documentation [facility] Name: Anyi Devi Age: 26 yrs Sex: Female : 1990 Arrival Date: 10/03/2016 Time: 09:48 Bed I4 / M4 Private MD: Maggie [facility] [place] [facility] [place] Disposition: 10/03/16 11:31 Discharged to Home/Self Care. Impression: Spontaneous , Urinary tract infection, site not specified. - Condition is Stable. - Discharge Instructions: Miscarriage, Urinary Tract Infection. - Prescriptions for Macrobid 100 mg Oral Capsule - take 100 milligrams by ORAL route every 12 hours for 7 days; 14 capsule. - Medication Reconciliation, Local Pharmacy Hours form. - Follow up: Emergency Department; When: As needed; Reason: Worsening of conditions. Follow up: Alicia Dhillon MD; When: 2 - 3 days; Reason: Wound/Symptom Recheck, Recheck today's complaints, Continuance of care. - Problem is new. - Symptoms are unchanged. Historical: - Allergies: no known allergies; - Home Meds: 1. Vitamin Oral once daily - PMHx: none; - PSHx: none; - Social history: Smoking status: Patient states former smoker of tobacco. No barriers to communication noted, The patient speaks fluent Indian, Speaks appropriately for age. - Family history: Not pertinent. - : The pt / caregiver states he / she is not on anticoagulants. Home medication list is obtained from the patient. - Exposure Risk Screening:: None identified. 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 4 in. (162.56 cm) (R); 11:41 BP 132 / 75; Pulse 89; Resp 18; Temp 97.6(O); Pulse Ox 97% on R/A; kc3 09:49 Body Mass Index 43.94 (116.12 kg, 162.56 cm) dd6 MDM: 09:57 UCG by Nursing ordered. dt4 09:58 Urinalysis Ordered. EDMS 09:58 Urine Culture Ordered. EDMS 10:07 IV Saline Lock ordered. dt4 10:07 NS 0.9% 1000 ml IV at bolus once ordered. dt4 10:07 Set up pelvic ordered. dt4 10:07 Undress patient appropriately for examination ordered. dt4 10:08 CBC with Diff Ordered. EDMS 10:08 Basic Metabolic Profile Ordered. EDMS 10:08 Hcg, Serum Quantitative Ordered. EDMS 10:08 Type & Screen Ordered. EDMS 10:08 GC & Chlamydia Amplification Ordered. EDMS 10:08 Wet Prep Ordered. EDMS 10:08 US 1st trimester Ordered. EDMS 10:32 Financial registration complete. lg 10:56 TRANSVAGINAL US Ordered. EDMS 11:51 [facility] [facility] [place] Agreement was scanned into [employer] and attached to record. lg 14:56 T-Sheet-- Draft Copy was scanned into [employer] and attached to record. gb 14:56 Radiology Report was scanned into [employer] and attached to record. Point of Care Testing: Urine : 10:06 hCG Reading: Positive; Control Reading: Positive; kc3 Ranges: Administered Medications: 10:25 Drug: NS 0.9% 1000 ml [sodium chloride 0.9 % intravenous solution] Route: IV; Rate: kc3 bolus; Site: left antecubital; 11:42 Follow up: IV Status: Completed infusion kc3 Signatures: Dispatcher [employer] Maryse Manriquez, MESERET CARL [facility] Maranda Thomason, Reg Reg gb Riley Clifford, Reg Reg lg Sonja Pacheco, DARCI BEJARANO dt4 Ashley NobleRN RN kc3 The chart was reviewed and I authenticate all verbal orders and agree with the evaluation and treatment provided.Attachments: 11:51 [facility] [place] Agreement lg 14:56 T-Sheet-- Draft Copy gb Chart Complete MTDD
--- NOTE | 2016-10-06 17:13 | EDDOCDS ---
Nurse's Notes [facility] Name: Anyi Devi Age: 26 yrs Sex: Female : 1990 Arrival Date: 10/03/2016 Time: 09:48 Bed I4 / M4 Private MD: SUZI Serrano Diagnosis: Spontaneous ;Urinary tract infection, site not specified Presentation: 10/03 09:52 Presenting complaint: Patient states: 6 weeks . started with heavy vaginal srm bleeding on the . sent here by overlock operator to be checked. Risk factors: The patient reports no loss of conciousness prior to arrival. This patient has not had a hysterectomy. This patient has not begun menopause. Adult Sepsis Screening: The patient does not have new or worsening altered mentation. Patient's respiratory rate is less than 22. Systolic blood pressure is greater than 100. Patient has a qSOFA score of 0- Negative Sepsis Screen. Suicide/Homicide risk assessment- the patient denies having any suicidal and/or homicidal ideations and does not present with any other emotional, behavioral or mental health complaints. Status: The patient is a dependent. Transition of care: patient was not received from another setting of care. 09:52 Acuity: JENNIFER Level 3 [facility] 09:52 Method Of Arrival: Walkin/Carried/Asstd [facility] Triage Assessment: 09:53 General: Appears in no apparent distress, Behavior is appropriate for age, cooperative. srm Pain: Denies pain. : Reports vaginal bleeding that is heavy flow. 09:54 Pt Declines HIV testing. [facility] CARPENTERS: 09:54 LMP 07/16/2016, Verified, EDC 04/22/2017, Gestational age from LMP: 11 weeks 2 srm days Historical: - Allergies: no known allergies; - Home Meds: 1. Vitamin Oral once daily - PMHx: none; - PSHx: none; - Social history: Smoking status: Patient states former smoker of tobacco. No barriers to communication noted, The patient speaks fluent Mohawk, Speaks appropriately for age. - Family history: Not pertinent. - : The pt / caregiver states he / she is not on anticoagulants. Home medication list is obtained from the patient. - Exposure Risk Screening:: None identified. Screenin:07 Screening information is obtained from the patient. Fall risk: No risks identified. kc3 Assistance ADL's: requires no assistance with activities of daily living. Abuse/DV Screen: The patient / caregiver reports he/she is: not in a situation that causes fear, pain or injury. Nutritional screening: No deficits noted. home support is adequate. 11:42 Advance Directives: Currently, there is no health care proxy. kc3 Assessment: 10:27 General: Appears in no apparent distress, comfortable, Behavior is appropriate for age, kc3 cooperative. Pain: Denies pain. Neurological: Level of Consciousness is awake, alert, obeys commands, Oriented to person, place, time. Respiratory: Airway is patent Respiratory effort is even, unlabored, Respiratory pattern is regular, symmetrical. : Reports vaginal bleeding that is moderate flow. Derm: Skin is pink, warm & dry. 11:11 General: Appears in no apparent distress, comfortable, Behavior is appropriate for age, kc3 cooperative. Pain: Denies pain. Neurological: Level of Consciousness is awake, alert, obeys commands, Oriented to person, place, time. Respiratory: Respiratory effort is even, unlabored, Respiratory pattern is regular, symmetrical. Derm: Skin is pink, warm & dry. Musculoskeletal: Circulation, motion, and sensation intact. 11:40 General: Appears in no apparent distress, comfortable, Behavior is appropriate for age, kc3 cooperative. Pain: Denies pain. Neurological: Level of Consciousness is awake, alert, obeys commands, Oriented to person, place, time. Respiratory: Respiratory effort is even, unlabored, Respiratory pattern is regular, symmetrical. : Reports vaginal bleeding that is moderate flow. Derm: Skin is pink, warm & dry. Vital Signs: 09:49 BP 154 / 65; Pulse 80; Resp 18 S; Temp 96.6(O); Pulse Ox 99% on R/A; Weight 116.12 kg dd6 (R); Height 5 ft. 4 in. (162.56 cm) (R); 11:41 BP 132 / 75; Pulse 89; Resp 18; Temp 97.6(O); Pulse Ox 97% on R/A; kc3 09:49 Body Mass Index 43.94 (116.12 kg, 162.56 cm) dd6 Vitals: 09:49 Log In Time: October 03, 2016 at 09:47. dd6 ED Course: 09:49 Patient visited by Cruz Daniels PCA. dd6 09:49 Maggie [facility] [place] Private Physician. dd6 09:49 Patient moved to Waiting dd6 09:50 Patient moved to Pre RCE dd6 09:53 Triage Initiated srm 09:54 Patient moved to Triage 2 srm 09:56 [facility] dt4 09:56 Eryn Newton MD is Attending Physician. dt4 09:56 Patient visited by Sonja Pacheco PA-C. dt4 09:56 Patient moved to I4 / M4 mlb1 10:06 Urinalysis Sent. kc3 10:06 Urine Culture Sent. kc3 10:07 The patient / caregiver is instructed regarding the plan of care and ED course. kc3 10:25 Type & Screen Sent. kc3 10:25 Hcg, Serum Quantitative Sent. kc3 10:26 Basic Metabolic Profile Sent. kc3 10:26 CBC with Diff Sent. kc3 10:27 Inserted saline lock: 20 gauge in left antecubital area and blood collected. The kc3 patient tolerated the procedure well. 10:28 Patient visited by Ashley Noble RN. kc3 10:35 Patient moved to Ultrasound br3 10:36 Wet Prep Sent. kc3 10:36 GC & Chlamydia Amplification Sent. kc3 10:37 Assist provider with pelvic exam: Set up pelvic tray. Specimens sent to lab. Performed kc3 by Sonja Pacheco PA-C Patient tolerated well. 10:38 Patient visited by Ashley Noble RN. kc3 10:59 Patient moved to I4 / M4 br3 11:11 Patient visited by Ashley Noble RN. kc3 11:30 Alicia Dhillon MD is Referral Physician. dt4 11:42 Discontinued IV lock intact, bleeding controlled, pressure dressing applied, No kc3 redness/swelling at site. 11:51 CT-EM Payment Agreement was scanned into [employer]pl[employer] and attached to record. lg 11:53 US 1st trimester Returned. EDMS 14:56 T-Sheet-- Draft Copy was scanned into [employer] and attached to record. gb 14:56 Radiology Report was scanned into [employer] and attached to record. gb Administered Medications: 10:25 Drug: NS 0.9% 1000 ml [sodium chloride 0.9 % intravenous solution] Route: IV; Rate: kc3 bolus; Site: left antecubital; 11:42 Follow up: IV Status: Completed infusion kc3 Point of Care Testing: Urine : 10:06 hCG Reading: Positive; Control Reading: Positive; kc3 Ranges: Order Results: Lab Order: Urinalysis; SPEC'M 10/03/16 10:01 Test: APPEARANCE, URINE; Value: CLOUDY; Range: CLEAR; Abnormal: Above high normal; Status: F Test: COLOR, URINE; Value: YELLOW; Range: YELLOW; Status: F Test: PH,URINE; Value: 5.0; Range: 5.0-9.0; Units: UNITS; Status: F Test: SPECIFIC GRAVITY URINE AUTO; Value: 1.020; Range: 1.002-1.035; Status: F Test: PROTEIN, URINE AUTO; Value: 2+; Range: NEGATIVE; Abnormal: Above high normal; Units: mg/dL; Status: F Test: GLUCOSE, URINE (UA) AUTO; Value: NEGATIVE; Range: NEGATIVE; Units: mg/dL; Status: F Test: KETONE, URINE AUTO; Value: NEGATIVE; Range: NEGATIVE; Units: mg/dL; Status: F Test: UROBILINOGEN, URINE AUTO; Value: 0.2; Range: 0.0-2.0; Units: mg/dL; Status: F Test: BILIRUBIN, URINE AUTO; Value: NEGATIVE; Range: NEGATIVE; Status: F Test: NITRITE, URINE AUTO; Value: NEGATIVE; Range: NEGATIVE; Status: F Test: LEUKOCYTE ESTERASE, URINE AUTO; Value: 1+; Range: NEGATIVE; Abnormal: Above high normal; Status: F Test: BLOOD, URINE BLOOD; Value: 3+; Range: NEGATIVE; Abnormal: Above high normal; Status: F Test: WBC, URINE AUTO; Value: 13; Range: 0-3; Abnormal: Above high normal; Units: /HPF; Status: F Test: RBC, URINE AUTO; Value: 42; Range: 0-3; Abnormal: Above high normal; Units: /HPF; Status: F Test: BACTERIA, URINE AUTO; Value: 1+; Range: NEGATIVE; Abnormal: Above high normal; Status: F Test: SQUAMOUS EPITHELIAL CELL UR AU; Value: 6; Range: 0-6; Units: /HPF; Status: F Test: MUCUS, URINE; Value: SMALL; Range: NEGATIVE; Status: F Test: HYALINE CAST, URINE AUTO; Value: 0; Range: 0-1; Units: /LPF; Status: F Lab Order: Urine Culture; SPEC'M 10/03/16 10:01 Test: URINE CULTURE; Value: ORGANISM 1: LACTOBACILLUS SPECIES; Status: F Test: URINE CULTURE; Value: LACTOBACILLUS SPECIES; Status: F Test: URINE CULTURE; Value: COLONY COUNT CFU/ml >100,000; Status: F Test: URINE CULTURE; Value: Lactobacillus sp line 1 Most Lactobacillus species recovered from clinical; Status: F Test: URINE CULTURE; Value: Lactobacillus sp line 2 specimens are rarely pathogenic. Penicillin or; Status: F Test: URINE CULTURE; Value: Lactobacillus sp line 3 ampicillin with or without gentamicin is recommended; Status: F Test: URINE CULTURE; Value: Lactobacillus sp line 4 for treatment. Clindamycin and erythromycin are; Status: F Test: URINE CULTURE; Value: Lactobacillus sp line 5 alternative treatments. Vancomycin resistance has been; Status: F Test: URINE CULTURE; Value: Lactobacillus sp line 6 reported.; Status: F Lab Order: CBC with Diff; SPEC'M 10/03/16 10:15 Test: WHITE BLOOD COUNT; Value: 7.4; Range: 4.0-10.0; Units: K/mm3; Status: F Test: RED BLOOD COUNT; Value: 4.62; Range: 4.00-5.40; Units: M/mm3; Status: F Test: HEMOGLOBIN; Value: 11.9; Range: 12.0-16.0; Abnormal: Below low normal; Units: g/dl; Status: F Test: HEMATOCRIT; Value: 37.1; Range: 36.0-47.0; Units: %; Status: F Test: MEAN CORPUSCULAR VOLUME; Value: 80.2; Range: 80.0-96.0; Units: fl; Status: F Test: MEAN CORPUSCULAR HEMOGLOBIN; Value: 25.8; Range: 27.0-33.0; Abnormal: Below low normal; Units: pg; Status: F Test: MEAN CORPUSCULAR HGB CONC; Value: 32.1; Range: 32.0-36.5; Units: g/dl; Status: F Test: RED CELL DISTRIBUTION WIDTH; Value: 14.3; Range: 11.5-14.5; Units: %; Status: F Test: PLATELET COUNT, AUTOMATED; Value: 262; Range: 150-450; Units: k/mm3; Status: F Test: NEUTROPHILS %; Value: 61.4; Range: 36.0-66.0; Units: %; Status: F Test: LYMPH %; Value: 30.4; Range: 24.0-44.0; Units: %; Status: F Test: MONO %; Value: 3.7; Range: 0.0-5.0; Units: %; Status: F Test: EOS %; Value: 2.4; Range: 0.0-3.0; Units: %; Status: F Test: BASO %; Value: 0.2; Range: 0.0-1.0; Units: %; Status: F Test: LARGE UNSTAINED CELL %; Value: 1.8; Range: 0.0-4.0; Units: %; Status: F Test: NEUTROPHILS #; Value: 4.6; Range: 1.8-7.7; Units: K/mm3; Status: F Test: LYMPH #; Value: 2.3; Range: 1.5-6.5; Units: K/mm3; Status: F Test: MONO #; Value: 0.3; Range: 0.0-0.8; Units: K/mm3; Status: F Test: EOS #; Value: 0.2; Range: 0.0-0.50; Units: K/mm3; Status: F Test: BASO #; Value: 0.0; Range: 0.0-0.2; Units: K/mm3; Status: F Test: LARGE UNSTAINED CELL #; Value: 0.1; Range: 0.0-0.4; Units: K/mm3; Status: F Lab Order: Basic Metabolic Profile; [facility] 10/03/16 10:15 Test: GLUCOSE, FASTING; Value: 100; Range: 70-105; Units: MG/DL; Status: F Test: BLOOD UREA NITROGEN; Value: 10; Range: 7-18; Units: MG/DL; Status: F Test: CREATININE FOR GFR; Value: 0.65; Range: 0.55-1.02; Units: MG/DL; Status: F Test: GLOMERULAR FILTRATION RATE; Value: > 60.0; Range: >60; Status: F Test: SODIUM LEVEL; Value: 141; Range: 136-145; Units: MEQ/L; Status: F Test: POTASSIUM SERUM; Value: 4.0; Range: 3.5-5.1; Units: MEQ/L; Status: F Test: CHLORIDE LEVEL; Value: 106; Range: 98-107; Units: MEQ/L; Status: F Test: CARBON DIOXIDE LEVEL; Value: 26; Range: 21-32; Units: MEQ/L; Status: F Test: ANION GAP; Value: 9; Range: 8-16; Units: MEQ/L; Status: F Test: CALCIUM LEVEL; Value: 8.9; Range: 8.5-10.1; Units: MG/DL; Status: F Test Note: ; Units are mL/min/1.73 m2 Chronic Kidney Disease Staging per NKF: Stage I & II GFR >=60 Normal to Mildly Decreased Stage III GFR 30-59 Moderately Decreased Stage IV GFR 15-29 Severely Decreased Stage V GFR <15 Very Little GFR Left ESRD GFR <15 on JEWELRY ENAMELER Lab Order: Hcg, Serum Quantitative; SPEC'M 10/03/16 10:15 Test: HCG, SERUM QUANTITATIVE; Value: 204; Units: MIU/ML; Status: F Test Note: ; GESTATIONAL AGE APPROXIMATE HCG RANGE (MIU/ML) 0.2-1 WEEK 5-50 1-2 WEEKS 50-500 2-3 WEEKS 100-5,000 3-4 WEEKS 500-10,000 4-5 WEEKS 1,000-50,000 5-6 WEEKS 10,000-100,000 6-8 WEEKS 15,000-200,000 2-3 MONTHS 10,000-100,000 NON FEMALES LESS THAN 3.0 Patient samples may contain human heterophilic antibodies that could react with immunoassays to give falsely elevated or depressed results. This assay has been designed to minimize interference from heterophilic antibodies. Elevated hCG levels have also been associated with trophoblastic disease and nontrophoblastic neoplasms. The possibility of having these diseases should be considered before a diagnosis of is made. This test is not intended for use as a surrogate marker for aiding in the diagnosis or monitoring the treatment of cancer patients. [employer] methodology. Lab Order: Type & Screen; SPEC'M 10/03/16 10:15 Test: BLOOD TYPE; Value: O POS; Status: F Test: AB SCREEN (INDIRECT TAISHA)GEL; Value: NEGATIVE; Status: F Lab Order: GC & Chlamydia Amplification; SPEC'M 10/03/16 10:15 Test: CHLAMYDIA DNA AMPLIFICATION; Value: NEGATIVE; Range: NEGATIVE; Status: F Test: GC DNA AMPLIFICATION; Value: NEGATIVE; Range: NEGATIVE; Status: F Lab Order: Wet Prep; SPEC'M 10/03/16 10:15 Test: WET PREP; Value: WET PREP RESULT; Status: F Test: WET PREP; Value: MANY EPITHELIAL CELLS PRESENT; Status: F Test: WET PREP; Value: MANY RBC; Status: F Test: WET PREP; Value: MODERATE WBC; Status: F Test: WET PREP; Value: MODERATE LONG RODS PRESENT; Status: F Test: WET PREP; Value: MODERATE SHORT RODS PRESENT; Status: F Radiology Order: US 1st trimester Test: US 1st trimester REASON FOR EXAMINATION: pos preg, vag bleed; FIRST TRIMESTER ULTRASOUND:; ; Real-time sonographic evaluation of the pelvis is performed utilizing; transabdominal and endovaginal technique.; ; Comparison is made with a priory study of 09/18/2016.; ; The previously noted gestational sac and fetus are no longer visualized on the; current exam compatible with spontaneous . The uterus measures 10.4 x 5.9; x 8.6 cm. The endometrial echo complex is diffusely heterogenous and thickened; measuring 1.8 cm in diameter. This probably represents a combination of blood; clot and/or retained products of conception.; ; Ovaries are normal in size and echotexture, right ovary measuring 3.9 x 2.1 x 2.2; cm and the left ovary 2.9 x 1.9 x 1.7 cm. There is no adnexal mass or free fluid.; ; ; IMPRESSION:; ; Previously noted gestational sac and fetus is no longer seen compatible with; spontaneous . Thickened heterogeneous endometrium likely represents a; combination of blood clot and/or retained products of conception.; ; ; Signed by; Abdulkadir Castro MD 10/03/2016 05:20 P; Outcome: 11:31 Discharge ordered by Provider. dt4 11:41 Discharge Assessment: Patient awake, alert and oriented x 3. No cognitive and/or kc3 functional deficits noted. Patient verbalized understanding of disposition instructions. patient administered narcotics - no. The following High Risk Discharge criteria are identified: None. Condition: stable. Discharge instructions given to patient, Instructed on discharge instructions, follow up and referral plans. medication usage, Demonstrated understanding of instructions, medications, Pt was receptive of discharge instructions/ teaching. Prescriptions given X 1. Ultrasound Study completed. Property :Personal belongings accompany Pt. 11:43 Patient left the ED. kc3 Addendum: 10/06/2016 17:11 Narrative: Urine culture reviewed by Dr Costa , no change in treatment. [facility] Signatures: Dispatcher [employer] EDMS Krysta Rojo RN RN [facility] Maryse Parisi, RN RN [facility] Maranda Thomason, Reg Reg gb Riley Clifford, Reg Reg lg Mohit, Nehemias Rice RN RN mlb1 Cruz Daniels, ROAD BUILDER ROAD BUILDER dd6 Katerin Loco br3 Sonja Pacheco, PA-C PA-C dt4 Ashley Noble,RN RN kc3 Corrections: (The following items were deleted from the chart) 10/03 10:37 10:27 : Reports vaginal bleeding that is kc3 kc3 11:40 10:27 : Reports vaginal bleeding that is kc3 kc3 MTDD
--- NOTE | 2016-10-06 17:14 | EDDOCDS ---
Nurse's Notes [facility] Name: Anyi Devi Age: 26 yrs Sex: Female : 1990 Arrival Date: 10/03/2016 Time: 09:48 Bed I4 / M4 Private MD: SUZI Serrano Diagnosis: Spontaneous ;Urinary tract infection, site not specified Presentation: 10/03 09:52 Presenting complaint: Patient states: 6 weeks . started with heavy vaginal srm bleeding on the . sent here by attendant sales to be checked. Risk factors: The patient reports no loss of conciousness prior to arrival. This patient has not had a hysterectomy. This patient has not begun menopause. Adult Sepsis Screening: The patient does not have new or worsening altered mentation. Patient's respiratory rate is less than 22. Systolic blood pressure is greater than 100. Patient has a qSOFA score of 0- Negative Sepsis Screen. Suicide/Homicide risk assessment- the patient denies having any suicidal and/or homicidal ideations and does not present with any other emotional, behavioral or mental health complaints. Status: The patient is a dependent. Transition of care: patient was not received from another setting of care. 09:52 Acuity: JENNIFER Level 3 [facility] 09:52 Method Of Arrival: Walkin/Carried/Asstd [facility] Triage Assessment: 09:53 General: Appears in no apparent distress, Behavior is appropriate for age, cooperative. srm Pain: Denies pain. : Reports vaginal bleeding that is heavy flow. 09:54 Pt Declines HIV testing. 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 Vitamin Oral once daily - PMHx: none; - PSHx: none; - Social history: Smoking status: Patient states former smoker of tobacco. No barriers to communication noted, The patient speaks fluent Yoruba, Speaks appropriately for age. - Family history: Not pertinent. - : The pt / caregiver states he / she is not on anticoagulants. Home medication list is obtained from the patient. - Exposure Risk Screening:: None identified. Screenin:07 Screening information is obtained from the patient. Fall risk: No risks identified. kc3 Assistance ADL's: requires no assistance with activities of daily living. Abuse/DV Screen: The patient / caregiver reports he/she is: not in a situation that causes fear, pain or injury. Nutritional screening: No deficits noted. home support is adequate. 11:42 Advance Directives: Currently, there is no health care proxy. kc3 Assessment: 10:27 General: Appears in no apparent distress, comfortable, Behavior is appropriate for age, kc3 cooperative. Pain: Denies pain. Neurological: Level of Consciousness is awake, alert, obeys commands, Oriented to person, place, time. Respiratory: Airway is patent Respiratory effort is even, unlabored, Respiratory pattern is regular, symmetrical. : Reports vaginal bleeding that is moderate flow. Derm: Skin is pink, warm & dry. 11:11 General: Appears in no apparent distress, comfortable, Behavior is appropriate for age, kc3 cooperative. Pain: Denies pain. Neurological: Level of Consciousness is awake, alert, obeys commands, Oriented to person, place, time. Respiratory: Respiratory effort is even, unlabored, Respiratory pattern is regular, symmetrical. Derm: Skin is pink, warm & dry. Musculoskeletal: Circulation, motion, and sensation intact. 11:40 General: Appears in no apparent distress, comfortable, Behavior is appropriate for age, kc3 cooperative. Pain: Denies pain. Neurological: Level of Consciousness is awake, alert, obeys commands, Oriented to person, place, time. Respiratory: Respiratory effort is even, unlabored, Respiratory pattern is regular, symmetrical. : Reports vaginal bleeding that is moderate flow. Derm: Skin is pink, warm & dry. Vital Signs: 09:49 BP 154 / 65; Pulse 80; Resp 18 S; Temp 96.6(O); Pulse Ox 99% on R/A; Weight 116.12 kg dd6 (R); Height 5 ft. 4 in. (162.56 cm) (R); 11:41 BP 132 / 75; Pulse 89; Resp 18; Temp 97.6(O); Pulse Ox 97% on R/A; kc3 09:49 Body Mass Index 43.94 (116.12 kg, 162.56 cm) dd6 Vitals: 09:49 Log In Time: October 03, 2016 at 09:47. dd6 ED Course: 09:49 Patient visited by Cruz Daniels PCA. dd6 09:49 Maggie [facility] is Private Physician. dd6 09:49 Patient moved to Waiting dd6 09:50 Patient moved to Pre RCE dd6 09:53 Triage Initiated srm 09:54 Patient moved to Triage 2 srm 09:56 [facility] dt4 09:56 Eryn Newton MD is Attending Physician. dt4 09:56 Patient visited by Sonja Pacheco PA-C. dt4 09:56 Patient moved to I4 / M4 mlb1 10:06 Urinalysis Sent. kc3 10:06 Urine Culture Sent. kc3 10:07 The patient / caregiver is instructed regarding the plan of care and ED course. kc3 10:25 Type & Screen Sent. kc3 10:25 Hcg, Serum Quantitative Sent. kc3 10:26 Basic Metabolic Profile Sent. kc3 10:26 CBC with Diff Sent. kc3 10:27 Inserted saline lock: 20 gauge in left antecubital area and blood collected. The kc3 patient tolerated the procedure well. 10:28 Patient visited by Ashley Noble RN. kc3 10:35 Patient moved to Ultrasound br3 10:36 Wet Prep Sent. kc3 10:36 GC & Chlamydia Amplification Sent. kc3 10:37 Assist provider with pelvic exam: Set up pelvic tray. Specimens sent to lab. Performed kc3 by Sonja Pacheco PA-C Patient tolerated well. 10:38 Patient visited by Ashley Noble RN. kc3 10:59 Patient moved to I4 / M4 br3 11:11 Patient visited by Ashley Noble RN. kc3 11:30 Alicia Dhillon MD is Referral Physician. dt4 11:42 Discontinued IV lock intact, bleeding controlled, pressure dressing applied, No kc3 redness/swelling at site. 11:51 [facility] Payment Agreement was scanned into [employer] and attached to record. lg 11:53 US 1st trimester Returned. EDMS 14:56 T-Sheet-- Draft Copy was scanned into [employer] and attached to record. gb 14:56 Radiology Report was scanned into [employer] and attached to record. gb Administered Medications: 10:25 Drug: NS 0.9% 1000 ml [sodium chloride 0.9 % intravenous solution] Route: IV; Rate: kc3 bolus; Site: left antecubital; 11:42 Follow up: IV Status: Completed infusion kc3 Point of Care Testing: Urine : 10:06 hCG Reading: Positive; Control Reading: Positive; kc3 Ranges: Order Results: Lab Order: Urinalysis; SPEC'M 10/03/16 10:01 Test: APPEARANCE, URINE; Value: CLOUDY; Range: CLEAR; Abnormal: Above high normal; Status: F Test: COLOR, URINE; Value: YELLOW; Range: YELLOW; Status: F Test: PH,URINE; Value: 5.0; Range: 5.0-9.0; Units: UNITS; Status: F Test: SPECIFIC GRAVITY URINE AUTO; Value: 1.020; Range: 1.002-1.035; Status: F Test: PROTEIN, URINE AUTO; Value: 2+; Range: NEGATIVE; Abnormal: Above high normal; Units: mg/dL; Status: F Test: GLUCOSE, URINE (UA) AUTO; Value: NEGATIVE; Range: NEGATIVE; Units: mg/dL; Status: F Test: KETONE, URINE AUTO; Value: NEGATIVE; Range: NEGATIVE; Units: mg/dL; Status: F Test: UROBILINOGEN, URINE AUTO; Value: 0.2; Range: 0.0-2.0; Units: mg/dL; Status: F Test: BILIRUBIN, URINE AUTO; Value: NEGATIVE; Range: NEGATIVE; Status: F Test: NITRITE, URINE AUTO; Value: NEGATIVE; Range: NEGATIVE; Status: F Test: LEUKOCYTE ESTERASE, URINE AUTO; Value: 1+; Range: NEGATIVE; Abnormal: Above high normal; Status: F Test: BLOOD, URINE BLOOD; Value: 3+; Range: NEGATIVE; Abnormal: Above high normal; Status: F Test: WBC, URINE AUTO; Value: 13; Range: 0-3; Abnormal: Above high normal; Units: /HPF; Status: F Test: RBC, URINE AUTO; Value: 42; Range: 0-3; Abnormal: Above high normal; Units: /HPF; Status: F Test: BACTERIA, URINE AUTO; Value: 1+; Range: NEGATIVE; Abnormal: Above high normal; Status: F Test: SQUAMOUS EPITHELIAL CELL UR AU; Value: 6; Range: 0-6; Units: /HPF; Status: F Test: MUCUS, URINE; Value: SMALL; Range: NEGATIVE; Status: F Test: HYALINE CAST, URINE AUTO; Value: 0; Range: 0-1; Units: /LPF; Status: F Lab Order: Urine Culture; SPEC'M 10/03/16 10:01 Test: URINE CULTURE; Value: ORGANISM 1: LACTOBACILLUS SPECIES; Status: F Test: URINE CULTURE; Value: LACTOBACILLUS SPECIES; Status: F Test: URINE CULTURE; Value: COLONY COUNT CFU/ml >100,000; Status: F Test: URINE CULTURE; Value: Lactobacillus sp line 1 Most Lactobacillus species recovered from clinical; Status: F Test: URINE CULTURE; Value: Lactobacillus sp line 2 specimens are rarely pathogenic. Penicillin or; Status: F Test: URINE CULTURE; Value: Lactobacillus sp line 3 ampicillin with or without gentamicin is recommended; Status: F Test: URINE CULTURE; Value: Lactobacillus sp line 4 for treatment. Clindamycin and erythromycin are; Status: F Test: URINE CULTURE; Value: Lactobacillus sp line 5 alternative treatments. Vancomycin resistance has been; Status: F Test: URINE CULTURE; Value: Lactobacillus sp line 6 reported.; Status: F Lab Order: CBC with Diff; SPEC'M 10/03/16 10:15 Test: WHITE BLOOD COUNT; Value: 7.4; Range: 4.0-10.0; Units: K/mm3; Status: F Test: RED BLOOD COUNT; Value: 4.62; Range: 4.00-5.40; Units: M/mm3; Status: F Test: HEMOGLOBIN; Value: 11.9; Range: 12.0-16.0; Abnormal: Below low normal; Units: g/dl; Status: F Test: HEMATOCRIT; Value: 37.1; Range: 36.0-47.0; Units: %; Status: F Test: MEAN CORPUSCULAR VOLUME; Value: 80.2; Range: 80.0-96.0; Units: fl; Status: F Test: MEAN CORPUSCULAR HEMOGLOBIN; Value: 25.8; Range: 27.0-33.0; Abnormal: Below low normal; Units: pg; Status: F Test: MEAN CORPUSCULAR HGB CONC; Value: 32.1; Range: 32.0-36.5; Units: g/dl; Status: F Test: RED CELL DISTRIBUTION WIDTH; Value: 14.3; Range: 11.5-14.5; Units: %; Status: F Test: PLATELET COUNT, AUTOMATED; Value: 262; Range: 150-450; Units: k/mm3; Status: F Test: NEUTROPHILS %; Value: 61.4; Range: 36.0-66.0; Units: %; Status: F Test: LYMPH %; Value: 30.4; Range: 24.0-44.0; Units: %; Status: F Test: MONO %; Value: 3.7; Range: 0.0-5.0; Units: %; Status: F Test: EOS %; Value: 2.4; Range: 0.0-3.0; Units: %; Status: F Test: BASO %; Value: 0.2; Range: 0.0-1.0; Units: %; Status: F Test: LARGE UNSTAINED CELL %; Value: 1.8; Range: 0.0-4.0; Units: %; Status: F Test: NEUTROPHILS #; Value: 4.6; Range: 1.8-7.7; Units: K/mm3; Status: F Test: LYMPH #; Value: 2.3; Range: 1.5-6.5; Units: K/mm3; Status: F Test: MONO #; Value: 0.3; Range: 0.0-0.8; Units: K/mm3; Status: F Test: EOS #; Value: 0.2; Range: 0.0-0.50; Units: K/mm3; Status: F Test: BASO #; Value: 0.0; Range: 0.0-0.2; Units: K/mm3; Status: F Test: LARGE UNSTAINED CELL #; Value: 0.1; Range: 0.0-0.4; Units: K/mm3; Status: F Lab Order: Basic Metabolic Profile; [facility]' 10/03/16 10:15 Test: GLUCOSE, FASTING; Value: 100; Range: 70-105; Units: MG/DL; Status: F Test: BLOOD UREA NITROGEN; Value: 10; Range: 7-18; Units: MG/DL; Status: F Test: CREATININE FOR GFR; Value: 0.65; Range: 0.55-1.02; Units: MG/DL; Status: F Test: GLOMERULAR FILTRATION RATE; Value: > 60.0; Range: >60; Status: F Test: SODIUM LEVEL; Value: 141; Range: 136-145; Units: MEQ/L; Status: F Test: POTASSIUM SERUM; Value: 4.0; Range: 3.5-5.1; Units: MEQ/L; Status: F Test: CHLORIDE LEVEL; Value: 106; Range: 98-107; Units: MEQ/L; Status: F Test: CARBON DIOXIDE LEVEL; Value: 26; Range: 21-32; Units: MEQ/L; Status: F Test: ANION GAP; Value: 9; Range: 8-16; Units: MEQ/L; Status: F Test: CALCIUM LEVEL; Value: 8.9; Range: 8.5-10.1; Units: MG/DL; Status: F Test Note: ; Units are mL/min/1.73 m2 Chronic Kidney Disease Staging per NKF: Stage I & II GFR >=60 Normal to Mildly Decreased Stage III GFR 30-59 Moderately Decreased Stage IV GFR 15-29 Severely Decreased Stage V GFR <15 Very Little GFR Left ESRD GFR <15 on MACHINIST CLASS B Lab Order: Hcg, Serum Quantitative; SPEC'M 10/03/16 10:15 Test: HCG, SERUM QUANTITATIVE; Value: 204; Units: MIU/ML; Status: F Test Note: ; GESTATIONAL AGE APPROXIMATE HCG RANGE (MIU/ML) 0.2-1 WEEK 5-50 1-2 WEEKS 50-500 2-3 WEEKS 100-5,000 3-4 WEEKS 500-10,000 4-5 WEEKS 1,000-50,000 5-6 WEEKS 10,000-100,000 6-8 WEEKS 15,000-200,000 2-3 MONTHS 10,000-100,000 NON FEMALES LESS THAN 3.0 Patient samples may contain human heterophilic antibodies that could react with immunoassays to give falsely elevated or depressed results. This assay has been designed to minimize interference from heterophilic antibodies. Elevated hCG levels have also been associated with trophoblastic disease and nontrophoblastic neoplasms. The possibility of having these diseases should be considered before a diagnosis of is made. This test is not intended for use as a surrogate marker for aiding in the diagnosis or monitoring the treatment of cancer patients. re3D methodology. Lab Order: Type & Screen; SPEC'M 10/03/16 10:15 Test: BLOOD TYPE; Value: O POS; Status: F Test: AB SCREEN (INDIRECT TAISHA)GEL; Value: NEGATIVE; Status: F Lab Order: GC & Chlamydia Amplification; SPEC'M 10/03/16 10:15 Test: CHLAMYDIA DNA AMPLIFICATION; Value: NEGATIVE; Range: NEGATIVE; Status: F Test: GC DNA AMPLIFICATION; Value: NEGATIVE; Range: NEGATIVE; Status: F Lab Order: Wet Prep; SPEC'M 10/03/16 10:15 Test: WET PREP; Value: WET PREP RESULT; Status: F Test: WET PREP; Value: MANY EPITHELIAL CELLS PRESENT; Status: F Test: WET PREP; Value: MANY RBC; Status: F Test: WET PREP; Value: MODERATE WBC; Status: F Test: WET PREP; Value: MODERATE LONG RODS PRESENT; Status: F Test: WET PREP; Value: MODERATE SHORT RODS PRESENT; Status: F Radiology Order: US 1st trimester Test: US 1st trimester REASON FOR EXAMINATION: pos preg, vag bleed; FIRST TRIMESTER ULTRASOUND:; ; Real-time sonographic evaluation of the pelvis is performed utilizing; transabdominal and endovaginal technique.; ; Comparison is made with a priory study of 09/18/2016.; ; The previously noted gestational sac and fetus are no longer visualized on the; current exam compatible with spontaneous . The uterus measures 10.4 x 5.9; x 8.6 cm. The endometrial echo complex is diffusely heterogenous and thickened; measuring 1.8 cm in diameter. This probably represents a combination of blood; clot and/or retained products of conception.; ; Ovaries are normal in size and echotexture, right ovary measuring 3.9 x 2.1 x 2.2; cm and the left ovary 2.9 x 1.9 x 1.7 cm. There is no adnexal mass or free fluid.; ; ; IMPRESSION:; ; Previously noted gestational sac and fetus is no longer seen compatible with; spontaneous . Thickened heterogeneous endometrium likely represents a; combination of blood clot and/or retained products of conception.; ; ; Signed by; Abdulkadir Castro MD 10/03/2016 05:20 P; Outcome: 11:31 Discharge ordered by Provider. dt4 11:41 Discharge Assessment: Patient awake, alert and oriented x 3. No cognitive and/or kc3 functional deficits noted. Patient verbalized understanding of disposition instructions. patient administered narcotics - no. The following High Risk Discharge criteria are identified: None. Condition: stable. Discharge instructions given to patient, Instructed on discharge instructions, follow up and referral plans. medication usage, Demonstrated understanding of instructions, medications, Pt was receptive of discharge instructions/ teaching. Prescriptions given X 1. Ultrasound Study completed. Property :Personal belongings accompany Pt. 11:43 Patient left the ED. kc3 Addendum: 10/06/2016 17:11 Narrative: Urine culture reviewed by Dr Costa , no change in treatment. [facility] Signatures: Dispatcher [employer] EDMS Krysta Rojo RN RN [facility] Maryse Parisi, RN RN [facility] Maranda Thomason, Reg Reg gb Riley Clifford, Reg Reg lg Mohit, Nehemias Rice RN RN mlb1 Cruz Daniels, BOOKKEEPER RECEPTIONIST BOOKKEEPER RECEPTIONIST dd6 Katerin Loco br3 Sonja Pacheco, PA-C PA-C dt4 Ashley Noble,RN RN kc3 Corrections: (The following items were deleted from the chart) 10/03 10:37 10:27 : Reports vaginal bleeding that is kc3 kc3 11:40 10:27 : Reports vaginal bleeding that is kc3 kc3 Chart Complete MTDD
--- NOTE | 2016-10-06 17:14 | EDDOCDS ---
Physician Documentation [facility] Name: Anyi Devi Age: 26 yrs Sex: Female : 1990 Arrival Date: 10/03/2016 Time: 09:48 Bed I4 / M4 Private MD: Maggie [facility] Disposition: 10/03/16 11:31 Discharged to Home/Self Care. Impression: Spontaneous , Urinary tract infection, site not specified. - Condition is Stable. - Discharge Instructions: Miscarriage, Urinary Tract Infection. - Prescriptions for Macrobid 100 mg Oral Capsule - take 100 milligrams by ORAL route every 12 hours for 7 days; 14 capsule. - Medication Reconciliation, Local Pharmacy Hours form. - Follow up: Emergency Department; When: As needed; Reason: Worsening of conditions. Follow up: Alicia Dhillon MD; When: 2 - 3 days; Reason: Wound/Symptom Recheck, Recheck today's complaints, Continuance of care. - Problem is new. - Symptoms are unchanged. Historical: - Allergies: no known allergies; - Home Meds: 1. Vitamin Oral once daily - PMHx: none; - PSHx: none; - Social history: Smoking status: Patient states former smoker of tobacco. No barriers to communication noted, The patient speaks fluent Dutch, Speaks appropriately for age. - Family history: Not pertinent. - : The pt / caregiver states he / she is not on anticoagulants. Home medication list is obtained from the patient. - Exposure Risk Screening:: None identified. 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 4 in. (162.56 cm) (R); 11:41 BP 132 / 75; Pulse 89; Resp 18; Temp 97.6(O); Pulse Ox 97% on R/A; kc3 09:49 Body Mass Index 43.94 (116.12 kg, 162.56 cm) dd6 MDM: 09:57 UCG by Nursing ordered. dt4 09:58 Urinalysis Ordered. EDMS 09:58 Urine Culture Ordered. EDMS 10:07 IV Saline Lock ordered. dt4 10:07 NS 0.9% 1000 ml IV at bolus once ordered. dt4 10:07 Set up pelvic ordered. dt4 10:07 Undress patient appropriately for examination ordered. dt4 10:08 CBC with Diff Ordered. EDMS 10:08 Basic Metabolic Profile Ordered. EDMS 10:08 Hcg, Serum Quantitative Ordered. EDMS 10:08 Type & Screen Ordered. EDMS 10:08 GC & Chlamydia Amplification Ordered. EDMS 10:08 Wet Prep Ordered. EDMS 10:08 US 1st trimester Ordered. EDMS 10:32 Financial registration complete. lg 10:56 TRANSVAGINAL US Ordered. EDMS 11:51 [facility] [place] Agreement was scanned into [employer] and attached to record. lg 14:56 T-Sheet-- Draft Copy was scanned into [employer] and attached to record. gb 14:56 Radiology Report was scanned into [employer] and attached to record. Point of Care Testing: Urine : 10:06 hCG Reading: Positive; Control Reading: Positive; kc3 Ranges: Administered Medications: 10:25 Drug: NS 0.9% 1000 ml [sodium chloride 0.9 % intravenous solution] Route: IV; Rate: kc3 bolus; Site: left antecubital; 11:42 Follow up: IV Status: Completed infusion kc3 Signatures: Dispatcher [employer] Maryse Manriquez, MESERTE CARL [facility] Maranda Thomason, Reg Reg gb Riley Clifford, Reg Reg lg Sonja Pacheco, DARCI BEJARANO dt4 Ashley NobleRN RN kc3 The chart was reviewed and I authenticate all verbal orders and agree with the evaluation and treatment provided.Attachments: 11:51 [facility] [place] Agreement lg 14:56 T-Sheet-- Draft Copy gb Chart Complete MTDD
--- NOTE | 2016-10-06 17:23 | EDDOCDS ---
Physician Documentation [facility] Name: Anyi Devi Age: 26 yrs Sex: Female : 1990 Arrival Date: 10/03/2016 Time: 09:48 Bed I4 / M4 Private MD: Maggie [facility] [place] Disposition: 10/03/16 11:31 Discharged to Home/Self Care. Impression: Spontaneous , Urinary tract infection, site not specified. - Condition is Stable. - Discharge Instructions: Miscarriage, Urinary Tract Infection. - Prescriptions for Macrobid 100 mg Oral Capsule - take 100 milligrams by ORAL route every 12 hours for 7 days; 14 capsule. - Medication Reconciliation, Local Pharmacy Hours form. - Follow up: Emergency Department; When: As needed; Reason: Worsening of conditions. Follow up: Alicia Dhillon MD; When: 2 - 3 days; Reason: Wound/Symptom Recheck, Recheck today's complaints, Continuance of care. - Problem is new. - Symptoms are unchanged. Historical: - Allergies: no known allergies; - Home Meds: 1. Vitamin Oral once daily - PMHx: none; - PSHx: none; - Social history: Smoking status: Patient states former smoker of tobacco. No barriers to communication noted, The patient speaks fluent Danish, Speaks appropriately for age. - Family history: Not pertinent. - : The pt / caregiver states he / she is not on anticoagulants. Home medication list is obtained from the patient. - Exposure Risk Screening:: None identified. 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 4 in. (162.56 cm) (R); 11:41 BP 132 / 75; Pulse 89; Resp 18; Temp 97.6(O); Pulse Ox 97% on R/A; kc3 09:49 Body Mass Index 43.94 (116.12 kg, 162.56 cm) dd6 MDM: 09:57 UCG by Nursing ordered. dt4 09:58 Urinalysis Ordered. EDMS 09:58 Urine Culture Ordered. EDMS 10:07 IV Saline Lock ordered. dt4 10:07 NS 0.9% 1000 ml IV at bolus once ordered. dt4 10:07 Set up pelvic ordered. dt4 10:07 Undress patient appropriately for examination ordered. dt4 10:08 CBC with Diff Ordered. EDMS 10:08 Basic Metabolic Profile Ordered. EDMS 10:08 Hcg, Serum Quantitative Ordered. EDMS 10:08 Type & Screen Ordered. EDMS 10:08 GC & Chlamydia Amplification Ordered. EDMS 10:08 Wet Prep Ordered. EDMS 10:08 US 1st trimester Ordered. EDMS 10:32 Financial registration complete. lg 10:56 TRANSVAGINAL US Ordered. EDMS 11:51 [facility] [place] Payment Agreement was scanned into [employer] and attached to record. lg 14:56 T-Sheet-- Draft Copy was scanned into [employer] and attached to record. gb 14:56 Radiology Report was scanned into [employer] and attached to record. Point of Care Testing: Urine : 10:06 hCG Reading: Positive; Control Reading: Positive; kc3 Ranges: Administered Medications: 10:25 Drug: NS 0.9% 1000 ml [sodium chloride 0.9 % intravenous solution] Route: IV; Rate: kc3 bolus; Site: left antecubital; 11:42 Follow up: IV Status: Completed infusion kc3 Signatures: Dispatcher [employer] Maryse Manriquez, MESERET CARL [facility] Maranda Thomason, Reg Reg gb Riley Clifford, Reg Reg lg Sonja Pacheco, DARCI BEJARANO dt4 Ashley NobleRN RN kc3 The chart was reviewed and I authenticate all verbal orders and agree with the evaluation and treatment provided.Attachments: 11:51 [facility] [place] Payment Agreement lg 14:56 T-Sheet-- Draft Copy gb Chart Complete MTDD
--- NOTE | 2016-10-06 17:23 | EDDOCDS ---
Nurse's Notes [facility] Name: Anyi Devi Age: 26 yrs Sex: Female : 1990 Arrival Date: 10/03/2016 Time: 09:48 Bed I4 / M4 Private MD: SUZI Serrano Diagnosis: Spontaneous ;Urinary tract infection, site not specified Presentation: 10/03 09:52 Presenting complaint: Patient states: 6 weeks . started with heavy vaginal srm bleeding on the . sent here by safety deposit boxes custodian to be checked. Risk factors: The patient reports no loss of conciousness prior to arrival. This patient has not had a hysterectomy. This patient has not begun menopause. Adult Sepsis Screening: The patient does not have new or worsening altered mentation. Patient's respiratory rate is less than 22. Systolic blood pressure is greater than 100. Patient has a qSOFA score of 0- Negative Sepsis Screen. Suicide/Homicide risk assessment- the patient denies having any suicidal and/or homicidal ideations and does not present with any other emotional, behavioral or mental health complaints. Status: The patient is a dependent. Transition of care: patient was not received from another setting of care. 09:52 Acuity: JENNIFER Level 3 [facility] 09:52 Method Of Arrival: Walkin/Carried/Asstd [facility] Triage Assessment: 09:53 General: Appears in no apparent distress, Behavior is appropriate for age, cooperative. srm Pain: Denies pain. : Reports vaginal bleeding that is heavy flow. 09:54 Pt Declines HIV testing. 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 Vitamin Oral once daily - PMHx: none; - PSHx: none; - Social history: Smoking status: Patient states former smoker of tobacco. No barriers to communication noted, The patient speaks fluent Amharic, Speaks appropriately for age. - Family history: Not pertinent. - : The pt / caregiver states he / she is not on anticoagulants. Home medication list is obtained from the patient. - Exposure Risk Screening:: None identified. Screenin:07 Screening information is obtained from the patient. Fall risk: No risks identified. kc3 Assistance ADL's: requires no assistance with activities of daily living. Abuse/DV Screen: The patient / caregiver reports he/she is: not in a situation that causes fear, pain or injury. Nutritional screening: No deficits noted. home support is adequate. 11:42 Advance Directives: Currently, there is no health care proxy. kc3 Assessment: 10:27 General: Appears in no apparent distress, comfortable, Behavior is appropriate for age, kc3 cooperative. Pain: Denies pain. Neurological: Level of Consciousness is awake, alert, obeys commands, Oriented to person, place, time. Respiratory: Airway is patent Respiratory effort is even, unlabored, Respiratory pattern is regular, symmetrical. : Reports vaginal bleeding that is moderate flow. Derm: Skin is pink, warm & dry. 11:11 General: Appears in no apparent distress, comfortable, Behavior is appropriate for age, kc3 cooperative. Pain: Denies pain. Neurological: Level of Consciousness is awake, alert, obeys commands, Oriented to person, place, time. Respiratory: Respiratory effort is even, unlabored, Respiratory pattern is regular, symmetrical. Derm: Skin is pink, warm & dry. Musculoskeletal: Circulation, motion, and sensation intact. 11:40 General: Appears in no apparent distress, comfortable, Behavior is appropriate for age, kc3 cooperative. Pain: Denies pain. Neurological: Level of Consciousness is awake, alert, obeys commands, Oriented to person, place, time. Respiratory: Respiratory effort is even, unlabored, Respiratory pattern is regular, symmetrical. : Reports vaginal bleeding that is moderate flow. Derm: Skin is pink, warm & dry. Vital Signs: 09:49 BP 154 / 65; Pulse 80; Resp 18 S; Temp 96.6(O); Pulse Ox 99% on R/A; Weight 116.12 kg dd6 (R); Height 5 ft. 4 in. (162.56 cm) (R); 11:41 BP 132 / 75; Pulse 89; Resp 18; Temp 97.6(O); Pulse Ox 97% on R/A; kc3 09:49 Body Mass Index 43.94 (116.12 kg, 162.56 cm) dd6 Vitals: 09:49 Log In Time: October 03, 2016 at 09:47. dd6 ED Course: 09:49 Patient visited by Cruz Daniels PCA. dd6 09:49 Maggie [facility] is Private Physician. dd6 09:49 Patient moved to Waiting dd6 09:50 Patient moved to Pre RCE dd6 09:53 Triage Initiated srm 09:54 Patient moved to Triage 2 srm 09:56 [facility] dt4 09:56 Eryn Newton MD is Attending Physician. dt4 09:56 Patient visited by Sonja Pacheco PA-C. dt4 09:56 Patient moved to I4 / M4 mlb1 10:06 Urinalysis Sent. kc3 10:06 Urine Culture Sent. kc3 10:07 The patient / caregiver is instructed regarding the plan of care and ED course. kc3 10:25 Type & Screen Sent. kc3 10:25 Hcg, Serum Quantitative Sent. kc3 10:26 Basic Metabolic Profile Sent. kc3 10:26 CBC with Diff Sent. kc3 10:27 Inserted saline lock: 20 gauge in left antecubital area and blood collected. The kc3 patient tolerated the procedure well. 10:28 Patient visited by Ashley Noble RN. kc3 10:35 Patient moved to Ultrasound br3 10:36 Wet Prep Sent. kc3 10:36 GC & Chlamydia Amplification Sent. kc3 10:37 Assist provider with pelvic exam: Set up pelvic tray. Specimens sent to lab. Performed kc3 by Sonja Pacheco PA-C Patient tolerated well. 10:38 Patient visited by Ashley Noble RN. kc3 10:59 Patient moved to I4 / M4 br3 11:11 Patient visited by Ashley Noble RN. kc3 11:30 Alicia Dhillon MD is Referral Physician. dt4 11:42 Discontinued IV lock intact, bleeding controlled, pressure dressing applied, No kc3 redness/swelling at site. 11:51 [facility] Payment Agreement was scanned into Ghostery and attached to record. lg 11:53 US 1st trimester Returned. EDMS 14:56 T-Sheet-- Draft Copy was scanned into Ghostery and attached to record. gb 14:56 Radiology Report was scanned into Ghostery and attached to record. gb Administered Medications: 10:25 Drug: NS 0.9% 1000 ml [sodium chloride 0.9 % intravenous solution] Route: IV; Rate: kc3 bolus; Site: left antecubital; 11:42 Follow up: IV Status: Completed infusion kc3 Point of Care Testing: Urine : 10:06 hCG Reading: Positive; Control Reading: Positive; kc3 Ranges: Order Results: Lab Order: Urinalysis; SPEC'M 10/03/16 10:01 Test: APPEARANCE, URINE; Value: CLOUDY; Range: CLEAR; Abnormal: Above high normal; Status: F Test: COLOR, URINE; Value: YELLOW; Range: YELLOW; Status: F Test: PH,URINE; Value: 5.0; Range: 5.0-9.0; Units: UNITS; Status: F Test: SPECIFIC GRAVITY URINE AUTO; Value: 1.020; Range: 1.002-1.035; Status: F Test: PROTEIN, URINE AUTO; Value: 2+; Range: NEGATIVE; Abnormal: Above high normal; Units: mg/dL; Status: F Test: GLUCOSE, URINE (UA) AUTO; Value: NEGATIVE; Range: NEGATIVE; Units: mg/dL; Status: F Test: KETONE, URINE AUTO; Value: NEGATIVE; Range: NEGATIVE; Units: mg/dL; Status: F Test: UROBILINOGEN, URINE AUTO; Value: 0.2; Range: 0.0-2.0; Units: mg/dL; Status: F Test: BILIRUBIN, URINE AUTO; Value: NEGATIVE; Range: NEGATIVE; Status: F Test: NITRITE, URINE AUTO; Value: NEGATIVE; Range: NEGATIVE; Status: F Test: LEUKOCYTE ESTERASE, URINE AUTO; Value: 1+; Range: NEGATIVE; Abnormal: Above high normal; Status: F Test: BLOOD, URINE BLOOD; Value: 3+; Range: NEGATIVE; Abnormal: Above high normal; Status: F Test: WBC, URINE AUTO; Value: 13; Range: 0-3; Abnormal: Above high normal; Units: /HPF; Status: F Test: RBC, URINE AUTO; Value: 42; Range: 0-3; Abnormal: Above high normal; Units: /HPF; Status: F Test: BACTERIA, URINE AUTO; Value: 1+; Range: NEGATIVE; Abnormal: Above high normal; Status: F Test: SQUAMOUS EPITHELIAL CELL UR AU; Value: 6; Range: 0-6; Units: /HPF; Status: F Test: MUCUS, URINE; Value: SMALL; Range: NEGATIVE; Status: F Test: HYALINE CAST, URINE AUTO; Value: 0; Range: 0-1; Units: /LPF; Status: F Lab Order: Urine Culture; SPEC'M 10/03/16 10:01 Test: URINE CULTURE; Value: ORGANISM 1: LACTOBACILLUS SPECIES; Status: F Test: URINE CULTURE; Value: LACTOBACILLUS SPECIES; Status: F Test: URINE CULTURE; Value: COLONY COUNT CFU/ml >100,000; Status: F Test: URINE CULTURE; Value: Lactobacillus sp line 1 Most Lactobacillus species recovered from clinical; Status: F Test: URINE CULTURE; Value: Lactobacillus sp line 2 specimens are rarely pathogenic. Penicillin or; Status: F Test: URINE CULTURE; Value: Lactobacillus sp line 3 ampicillin with or without gentamicin is recommended; Status: F Test: URINE CULTURE; Value: Lactobacillus sp line 4 for treatment. Clindamycin and erythromycin are; Status: F Test: URINE CULTURE; Value: Lactobacillus sp line 5 alternative treatments. Vancomycin resistance has been; Status: F Test: URINE CULTURE; Value: Lactobacillus sp line 6 reported.; Status: F Lab Order: CBC with Diff; SPEC'M 10/03/16 10:15 Test: WHITE BLOOD COUNT; Value: 7.4; Range: 4.0-10.0; Units: K/mm3; Status: F Test: RED BLOOD COUNT; Value: 4.62; Range: 4.00-5.40; Units: M/mm3; Status: F Test: HEMOGLOBIN; Value: 11.9; Range: 12.0-16.0; Abnormal: Below low normal; Units: g/dl; Status: F Test: HEMATOCRIT; Value: 37.1; Range: 36.0-47.0; Units: %; Status: F Test: MEAN CORPUSCULAR VOLUME; Value: 80.2; Range: 80.0-96.0; Units: fl; Status: F Test: MEAN CORPUSCULAR HEMOGLOBIN; Value: 25.8; Range: 27.0-33.0; Abnormal: Below low normal; Units: pg; Status: F Test: MEAN CORPUSCULAR HGB CONC; Value: 32.1; Range: 32.0-36.5; Units: g/dl; Status: F Test: RED CELL DISTRIBUTION WIDTH; Value: 14.3; Range: 11.5-14.5; Units: %; Status: F Test: PLATELET COUNT, AUTOMATED; Value: 262; Range: 150-450; Units: k/mm3; Status: F Test: NEUTROPHILS %; Value: 61.4; Range: 36.0-66.0; Units: %; Status: F Test: LYMPH %; Value: 30.4; Range: 24.0-44.0; Units: %; Status: F Test: MONO %; Value: 3.7; Range: 0.0-5.0; Units: %; Status: F Test: EOS %; Value: 2.4; Range: 0.0-3.0; Units: %; Status: F Test: BASO %; Value: 0.2; Range: 0.0-1.0; Units: %; Status: F Test: LARGE UNSTAINED CELL %; Value: 1.8; Range: 0.0-4.0; Units: %; Status: F Test: NEUTROPHILS #; Value: 4.6; Range: 1.8-7.7; Units: K/mm3; Status: F Test: LYMPH #; Value: 2.3; Range: 1.5-6.5; Units: K/mm3; Status: F Test: MONO #; Value: 0.3; Range: 0.0-0.8; Units: K/mm3; Status: F Test: EOS #; Value: 0.2; Range: 0.0-0.50; Units: K/mm3; Status: F Test: BASO #; Value: 0.0; Range: 0.0-0.2; Units: K/mm3; Status: F Test: LARGE UNSTAINED CELL #; Value: 0.1; Range: 0.0-0.4; Units: K/mm3; Status: F Lab Order: Basic Metabolic Profile; [facility]' 10/03/16 10:15 Test: GLUCOSE, FASTING; Value: 100; Range: 70-105; Units: MG/DL; Status: F Test: BLOOD UREA NITROGEN; Value: 10; Range: 7-18; Units: MG/DL; Status: F Test: CREATININE FOR GFR; Value: 0.65; Range: 0.55-1.02; Units: MG/DL; Status: F Test: GLOMERULAR FILTRATION RATE; Value: > 60.0; Range: >60; Status: F Test: SODIUM LEVEL; Value: 141; Range: 136-145; Units: MEQ/L; Status: F Test: POTASSIUM SERUM; Value: 4.0; Range: 3.5-5.1; Units: MEQ/L; Status: F Test: CHLORIDE LEVEL; Value: 106; Range: 98-107; Units: MEQ/L; Status: F Test: CARBON DIOXIDE LEVEL; Value: 26; Range: 21-32; Units: MEQ/L; Status: F Test: ANION GAP; Value: 9; Range: 8-16; Units: MEQ/L; Status: F Test: CALCIUM LEVEL; Value: 8.9; Range: 8.5-10.1; Units: MG/DL; Status: F Test Note: ; Units are mL/min/1.73 m2 Chronic Kidney Disease Staging per NKF: Stage I & II GFR >=60 Normal to Mildly Decreased Stage III GFR 30-59 Moderately Decreased Stage IV GFR 15-29 Severely Decreased Stage V GFR <15 Very Little GFR Left ESRD GFR <15 on TRIMMER BUFFING WHEEL Lab Order: Hcg, Serum Quantitative; SPEC'M 10/03/16 10:15 Test: HCG, SERUM QUANTITATIVE; Value: 204; Units: MIU/ML; Status: F Test Note: ; GESTATIONAL AGE APPROXIMATE HCG RANGE (MIU/ML) 0.2-1 WEEK 5-50 1-2 WEEKS 50-500 2-3 WEEKS 100-5,000 3-4 WEEKS 500-10,000 4-5 WEEKS 1,000-50,000 5-6 WEEKS 10,000-100,000 6-8 WEEKS 15,000-200,000 2-3 MONTHS 10,000-100,000 NON FEMALES LESS THAN 3.0 Patient samples may contain human heterophilic antibodies that could react with immunoassays to give falsely elevated or depressed results. This assay has been designed to minimize interference from heterophilic antibodies. Elevated hCG levels have also been associated with trophoblastic disease and nontrophoblastic neoplasms. The possibility of having these diseases should be considered before a diagnosis of is made. This test is not intended for use as a surrogate marker for aiding in the diagnosis or monitoring the treatment of cancer patients. HipSwap methodology. Lab Order: Type & Screen; SPEC'M 10/03/16 10:15 Test: BLOOD TYPE; Value: O POS; Status: F Test: AB SCREEN (INDIRECT TAISHA)GEL; Value: NEGATIVE; Status: F Lab Order: GC & Chlamydia Amplification; SPEC'M 10/03/16 10:15 Test: CHLAMYDIA DNA AMPLIFICATION; Value: NEGATIVE; Range: NEGATIVE; Status: F Test: GC DNA AMPLIFICATION; Value: NEGATIVE; Range: NEGATIVE; Status: F Lab Order: Wet Prep; SPEC'M 10/03/16 10:15 Test: WET PREP; Value: WET PREP RESULT; Status: F Test: WET PREP; Value: MANY EPITHELIAL CELLS PRESENT; Status: F Test: WET PREP; Value: MANY RBC; Status: F Test: WET PREP; Value: MODERATE WBC; Status: F Test: WET PREP; Value: MODERATE LONG RODS PRESENT; Status: F Test: WET PREP; Value: MODERATE SHORT RODS PRESENT; Status: F Radiology Order: US 1st trimester Test: US 1st trimester REASON FOR EXAMINATION: pos preg, vag bleed; FIRST TRIMESTER ULTRASOUND:; ; Real-time sonographic evaluation of the pelvis is performed utilizing; transabdominal and endovaginal technique.; ; Comparison is made with a priory study of 09/18/2016.; ; The previously noted gestational sac and fetus are no longer visualized on the; current exam compatible with spontaneous . The uterus measures 10.4 x 5.9; x 8.6 cm. The endometrial echo complex is diffusely heterogenous and thickened; measuring 1.8 cm in diameter. This probably represents a combination of blood; clot and/or retained products of conception.; ; Ovaries are normal in size and echotexture, right ovary measuring 3.9 x 2.1 x 2.2; cm and the left ovary 2.9 x 1.9 x 1.7 cm. There is no adnexal mass or free fluid.; ; ; IMPRESSION:; ; Previously noted gestational sac and fetus is no longer seen compatible with; spontaneous . Thickened heterogeneous endometrium likely represents a; combination of blood clot and/or retained products of conception.; ; ; Signed by; Abdulkadir Castro MD 10/03/2016 05:20 P; Outcome: 11:31 Discharge ordered by Provider. dt4 11:41 Discharge Assessment: Patient awake, alert and oriented x 3. No cognitive and/or kc3 functional deficits noted. Patient verbalized understanding of disposition instructions. patient administered narcotics - no. The following High Risk Discharge criteria are identified: None. Condition: stable. Discharge instructions given to patient, Instructed on discharge instructions, follow up and referral plans. medication usage, Demonstrated understanding of instructions, medications, Pt was receptive of discharge instructions/ teaching. Prescriptions given X 1. Ultrasound Study completed. Property :Personal belongings accompany Pt. 11:43 Patient left the ED. kc3 Addendum: 10/06/2016 17:11 Narrative: Urine culture reviewed by Dr Costa , no change in treatment. [facility] Signatures: Dispatcher [employer] EDMS Krysta Rojo RN RN [facility] Maryse Parisi, RN RN [facility] Maranda Thomason, Reg Reg gb Riley Clifford, Reg Reg lg Mohit, Nehemias Rice RN RN mlb1 Cruz Daniels, TEMPLATE CLERK TEMPLATE CLERK dd6 Katerin Loco br3 Sonja Pacheco, PA-C PA-C dt4 Ashley Noble,RN RN kc3 Corrections: (The following items were deleted from the chart) 10/03 10:37 10:27 : Reports vaginal bleeding that is kc3 kc3 11:40 10:27 : Reports vaginal bleeding that is kc3 kc3 Chart Complete MTDD
--- NOTE | 2016-10-06 17:23 | EDDOCDS ---
Physician Documentation [facility] Name: Anyi Devi Age: 26 yrs Sex: Female : 1990 Arrival Date: 10/03/2016 Time: 09:48 Bed I4 / M4 Private MD: Maggie [facility] Disposition: 10/03/16 11:31 Discharged to Home/Self Care. Impression: Spontaneous , Urinary tract infection, site not specified. - Condition is Stable. - Discharge Instructions: Miscarriage, Urinary Tract Infection. - Prescriptions for Macrobid 100 mg Oral Capsule - take 100 milligrams by ORAL route every 12 hours for 7 days; 14 capsule. - Medication Reconciliation, Local Pharmacy Hours form. - Follow up: Emergency Department; When: As needed; Reason: Worsening of conditions. Follow up: Alicia Dhillon MD; When: 2 - 3 days; Reason: Wound/Symptom Recheck, Recheck today's complaints, Continuance of care. - Problem is new. - Symptoms are unchanged. Historical: - Allergies: no known allergies; - Home Meds: 1. Vitamin Oral once daily - PMHx: none; - PSHx: none; - Social history: Smoking status: Patient states former smoker of tobacco. No barriers to communication noted, The patient speaks fluent Montserratian, Speaks appropriately for age. - Family history: Not pertinent. - : The pt / caregiver states he / she is not on anticoagulants. Home medication list is obtained from the patient. - Exposure Risk Screening:: None identified. CHART COMPUTER: 10/03 09:54 LMP 07/16/2016, Verified, EDC 04/22/2017, Gestational age from LMP: 11 weeks 2 srm days Vital Signs: 09:49 BP 154 / 65; Pulse 80; Resp 18 S; Temp 96.6(O); Pulse Ox 99% on R/A; Weight 116.12 kg / dd6 256 lbs (R); Height 5 ft. 4 in. (162.56 cm) (R); 11:41 BP 132 / 75; Pulse 89; Resp 18; Temp 97.6(O); Pulse Ox 97% on R/A; kc3 09:49 Body Mass Index 43.94 (116.12 kg, 162.56 cm) dd6 MDM: 09:57 UCG by Nursing ordered. dt4 09:58 Urinalysis Ordered. EDMS 09:58 Urine Culture Ordered. EDMS 10:07 IV Saline Lock ordered. dt4 10:07 NS 0.9% 1000 ml IV at bolus once ordered. dt4 10:07 Set up pelvic ordered. dt4 10:07 Undress patient appropriately for examination ordered. dt4 10:08 CBC with Diff Ordered. EDMS 10:08 Basic Metabolic Profile Ordered. EDMS 10:08 Hcg, Serum Quantitative Ordered. EDMS 10:08 Type & Screen Ordered. EDMS 10:08 GC & Chlamydia Amplification Ordered. EDMS 10:08 Wet Prep Ordered. EDMS 10:08 US 1st trimester Ordered. EDMS 10:32 Financial registration complete. lg 10:56 TRANSVAGINAL US Ordered. EDMS 11:51 [place] Payment Agreement was scanned into [employer] and attached to record. lg 14:56 T-Sheet-- Draft Copy was scanned into [employer] and attached to record. gb 14:56 Radiology Report was scanned into [employer] and attached to record. Point of Care Testing: Urine : 10:06 hCG Reading: Positive; Control Reading: Positive; kc3 Ranges: Administered Medications: 10:25 Drug: NS 0.9% 1000 ml [sodium chloride 0.9 % intravenous solution] Route: IV; Rate: kc3 bolus; Site: left antecubital; 11:42 Follow up: IV Status: Completed infusion kc3 Signatures: Dispatcher [employer] Maryse Manriquez, MESERET CARL [facility] Maranda Thomason, Reg Reg gb Riley Clifford, Reg Reg lg Sonja Pacheco, DARCI BEJARANO dt4 Ashley NobleRN RN kc3 The chart was reviewed and I authenticate all verbal orders and agree with the evaluation and treatment provided.Attachments: 11:51 [place] Payment Agreement lg 14:56 T-Sheet-- Draft Copy gb Chart Complete MTDD
== END 2016-10-03 11:43 | disposition home or self-care (01) ==
LOC: M ED 09:48
DX: O03.9 Complete or unspecified spontaneous abortion without complication (principal); O23.41 Unspecified infection of urinary tract in pregnancy, first trimester; Z87.891 Personal history of nicotine dependence; Z3A.11 11 weeks gestation of pregnancy

== ENCOUNTER 2017-04-03 19:50 | Emergency (ER) | payer OTHER ==
[~2017-04-03] VITALS: Ht 162.6 cm; Wt 114.6 kg
[2017-04-03 20:37] LABS: BASO # 0.1 K/mm3 (0.0-0.2); BASO % 0.6 % (0.0-1.0); EOS # 0.2 K/mm3 (0.0-0.50); EOS % 2.5 % (0.0-3.0); LARGE UNSTAINED CELL # 0.1 K/mm3 (0.0-0.4); LARGE UNSTAINED CELL % 1.2 % (0.0-4.0); LYMPH # 3.4 K/mm3 (1.5-6.5); LYMPH % 33.8 % (24.0-44.0); MEAN CORPUSCULAR HEMOGLOBIN 25.4 pg (27.0-33.0); MEAN CORPUSCULAR HGB CONC 31.9 g/dl (32.0-36.5); MEAN CORPUSCULAR VOLUME 79.6 fl (80.0-96.0); MONO # 0.3 K/mm3 (0.0-0.8); MONO % 3.2 % (0.0-5.0); NEUTROPHILS # 5.8 K/mm3 (1.8-7.7); NEUTROPHILS % 58.6 % (36.0-66.0); PLATELET COUNT, AUTOMATED 293 k/mm3 (150-450)
[2017-04-03 21:32] VITALS: BP 139/97
== END 2017-04-03 21:40 | disposition home or self-care (01) ==
LOC: M ED 20:23
DX: O20.0 Threatened abortion (principal); Z3A.01 Less than 8 weeks gestation of pregnancy; Z87.891 Personal history of nicotine dependence

== ENCOUNTER 2017-05-16 15:26 | Emergency (ER) | payer OTHER ==
[~2017-05-16] VITALS: Ht 162.6 cm; Wt 115.0 kg
[2017-05-16 18:00] LABS: MEAN CORPUSCULAR HEMOGLOBIN 25.6 pg (27.0-33.0); MEAN CORPUSCULAR HGB CONC 32.4 g/dl (32.0-36.5); RED CELL DISTRIBUTION WIDTH 14.6 % (11.5-14.5); WHITE BLOOD COUNT 7.9 K/mm3 (4.0-10.0)
--- NOTE | 2017-05-16 19:30 | REPUSA ---
CLINICAL HISTORY: Recent miscarriage. TECHNIQUE: Realtime sonographic images were obtained in multiple projections. COMMENTS: The uterus is measuring 8.9 x 4.3 x 5.6 cm. No intrauterine is seen questionable for early intrauterine versus missed . . The right ovary measures 2.7 x 3.7 x 2.3 cm and the left ovary measures 2.8 x 1.6 x 1.6 cm. Both ova rocío are free of solid or cystic mass. The right ovarian artery resistive index measures 0.45. The left ovarian artery resistive index measures 0.27. Free fluid in the right adnexa. There is no evidence for abnormal vascularity. IMPRESSION: 1. No intrauterine is seen. 2. Questionable for early intrauterine versus missed . 3. Free fluid in the right adnexa.
[2017-05-16 19:59] VITALS: BP 120/65
== END 2017-05-16 20:20 | disposition home or self-care (01) ==
LOC: M ED 15:26
DX: O20.0 Threatened abortion (principal); Z87.891 Personal history of nicotine dependence; Z3A.00 Weeks of gestation of pregnancy not specified

== ENCOUNTER → 2017-05-18 | Outpatient (CLI) | payer OTHER | LOC: M LAB 15:28 | PROVIDERS: ATTEND Emergency Medicine | DX: O20.0 Threatened abortion (principal); Z3A.00 Weeks of gestation of pregnancy not specified ==